=== PATIENT | female | born 1945 | race Caucasian/White ===

== ENCOUNTER → 2019-10-09 08:59 | Outpatient (BNVA) | payer MEDICARE, OTHER, SELFPAY | PROVIDERS: Family Provider Physician Assistant Medical; PCP Physician Assistant Medical; Referring Provider Internal Medicine Rheumatology; Visit Provider Internal Medicine Rheumatology | DX: M05.79 Rheumatoid arthritis with rheumatoid factor of multiple sites without organ or systems involvement (principal); Z79.899 Other long term (current) drug therapy | CPT/HCPCS: 36415; 82565; 84450; 84460; 85007; 85027; 85651; 86140 ==

== ENCOUNTER → 2019-10-17 13:45 | Outpatient (BNVA) | payer MEDICARE, OTHER, SELFPAY | PROVIDERS: Family Provider Physician Assistant Medical; PCP Physician Assistant Medical; Visit Provider Internal Medicine Rheumatology | DX: M05.79 Rheumatoid arthritis with rheumatoid factor of multiple sites without organ or systems involvement (principal); Z79.899 Other long term (current) drug therapy; Z11.59 Encounter for screening for other viral diseases; M05.9 Rheumatoid arthritis with rheumatoid factor, unspecified; M19.042 Primary osteoarthritis, left hand; M19.041 Primary osteoarthritis, right hand; M20.12 Hallux valgus (acquired), left foot; M20.11 Hallux valgus (acquired), right foot | CPT/HCPCS: 73130; 73630; 99214 ==

== ENCOUNTER 2019-10-17 15:33 | Outpatient (CLI) | payer MEDICARE, OTHER, SELFPAY ==
--- NOTE | 2019-10-17 15:40 | XR_ITS ---
WS: [id number] LEFT HAND: 3 VIEW(S) TECHNIQUE: PA, oblique and lateral. HISTORY: arthritis COMPARISON: None available. No acute fracture or dislocation. Severe degenerative joint disease involving the second IP joint. Bony hypertrophy with loss of the cristobal int space and sclerosis. Interphalangeal joint space narrowing. Moderate degenerative joint disease a t the first carpometacarpal joint. Early erosion at the ulnar styloid suspected. XR/XR hand LT min 3V* [id number] IMPRESSION: 1. Osteoarthritis, most significant at the first carpometacarpal joint and sec ond DIP joint. 2. Early erosion involving the ulnar styloid. This is often a site for early i nflammatory arthritis.
--- NOTE | 2019-10-17 15:40 | XR_ITS ---
WS: [id number] RIGHT FOOT: 3 VIEW(S) TECHNIQUE: PA, oblique and lateral. HISTORY: arthritis COMPARISON: None available. No acute fracture or dislocation. Mild hallux valgus. No erosions at the metatarsal heads. No soft tissue abnormality or bone destruction. XR/XR foot RT min 3V* [id number] IMPRESSION: Mild hallux valgus deformity.
--- NOTE | 2019-10-17 15:40 | XR_ITS ---
WS: [id number] LEFT FOOT: 3 VIEW(S) TECHNIQUE: PA, oblique and lateral. HISTORY: arthritis COMPARISON: None available. No acute fracture or dislocation. Mild hallux valgus deformity. Screw fixation involving the distal fifth metatarsal. Resection of the fifth metatarsal. No erosions. No soft tissue abnormality or bone destruction. XR/XR foot LT min 3V* [id number] IMPRESSION: 1. Postoperative screw fixation distal fifth metatarsal. Abnormal contour or t he fifth metatarsal head may be postsurgical. 2. Mild hallux valgus.
--- NOTE | 2019-10-17 15:40 | XR_ITS ---
WS: [id number] RIGHT HAND: 3 VIEW(S) TECHNIQUE: PA, oblique and lateral. HISTORY: arthritis COMPARISON: None available. No acute fracture or dislocation. Interphalangeal joint space narrowing, most significant involving the DIP joints of the third and sec ond fingers. No erosions. XR/XR hand RT min 3V* [id number] IMPRESSION: Osteoarthritis, most significant at the DIP joints of the second and third fing ers.
== END 2019-10-17 15:34 | disposition home or self-care (01) ==
LOC: RADWPI 15:37
PROVIDERS: Family Provider Physician Assistant Medical; PCP Physician Assistant Medical; Visit Provider Internal Medicine Rheumatology
DX: M05.9 Rheumatoid arthritis with rheumatoid factor, unspecified (principal); M19.042 Primary osteoarthritis, left hand; M19.041 Primary osteoarthritis, right hand; M20.12 Hallux valgus (acquired), left foot; M20.11 Hallux valgus (acquired), right foot
CPT/HCPCS: 73130; 73630

== ENCOUNTER → 2020-01-17 14:09 | Outpatient (BNVA) | payer MEDICARE, OTHER, SELFPAY | PROVIDERS: Family Provider Physician Assistant Medical; PCP Physician Assistant Medical; Visit Provider Internal Medicine Rheumatology | DX: M05.79 Rheumatoid arthritis with rheumatoid factor of multiple sites without organ or systems involvement (principal); Z79.899 Other long term (current) drug therapy; G60.9 Hereditary and idiopathic neuropathy, unspecified | CPT/HCPCS: 36415; 80076; 82565; 85025; 85651; 86140; 99214 ==

== ENCOUNTER → 2020-05-27 09:43 | Outpatient (BNVA) | payer MEDICARE, OTHER, SELFPAY | PROVIDERS: Family Provider Physician Assistant Medical; PCP Physician Assistant Medical; Visit Provider Internal Medicine Rheumatology | DX: M05.79 Rheumatoid arthritis with rheumatoid factor of multiple sites without organ or systems involvement (principal); Z79.899 Other long term (current) drug therapy; Z11.1 Encounter for screening for respiratory tuberculosis; G60.9 Hereditary and idiopathic neuropathy, unspecified; M10.9 Gout, unspecified; Z91.81 History of falling | CPT/HCPCS: 36415; 80076; 82565; 85025; 85651; 86140; 86480; 99214 ==

== ENCOUNTER 2020-06-06 14:50 | Outpatient (CLI) | payer MEDICARE, OTHER, SELFPAY ==
--- NOTE | 2020-06-06 15:45 | XR_ITS ---
WS: [id number] SCREENING DEXA SCAN imageloop CLINICAL INFORMATION: osteoporosis screening COMPARISON: None. FINDINGS: The L1-L4 bone mineral density measures 0.974 g/cm2. This corresponds to a T score score of -1.7 and Z score of 0.0. Left femoral neck bone mineral density measures 0.931 g/cm2. This corresponds to a T score of -0.6 an d Z score of 1.1. Right femoral neck bone mineral density measures 0.906 g/cm2. This corresponds to a T score -0.8of an d Z score of 0.9. Mean femoral neck bone mineral density measures 0.919 g/cm2. This corresponds to a T score of -0.7 an d Z score of 1.0. XR/XR DEXA axial skeleton* [id number] IMPRESSION: Osteopenia lumbar spine. Normal bone mineralization in the femoral necks. Patient's FRAX calculated 10 year probability for major osteoporotic fracture i s 22.7 % and osteoporotic hip fracture is 5.0%.
== END 2020-06-06 14:51 | disposition home or self-care (01) ==
LOC: RADWPI 14:55
PROVIDERS: Family Provider Physician Assistant Medical; PCP Physician Assistant Medical; Visit Provider Internal Medicine Rheumatology
DX: Z13.820 Encounter for screening for osteoporosis (principal); M85.88 Other specified disorders of bone density and structure, other site
CPT/HCPCS: 77080

== ENCOUNTER 2020-06-25 09:52 | Outpatient (CLI) | payer MEDICARE, OTHER, SELFPAY ==
[2020-06-25 10:00] VITALS: BP 135/85; PULSE 80; RESP 16; TEMP 36.8; O2SAT 96
[2020-06-25 11:11] VITALS: BMI 26.9
--- NOTE | 2020-06-25 11:12 | PC.NURSE ---
1000 Initial infusion of Simponi Aria. Pt had received medication education prior to today. More education given. Discussed plan of care. A&Ox3. Denies s&s of infection or rash. Ambulating without difficulty or assistance.
[2020-06-25 11:34] VITALS: BP 152/89; PULSE 60; RESP 16; O2SAT 95
== END 2020-06-25 09:53 | disposition home or self-care (01) ==
LOC: RHEOACUTE 09:54
PROVIDERS: Family Provider Physician Assistant Medical; PCP Physician Assistant Medical; Visit Provider Internal Medicine Rheumatology
DX: M05.79 Rheumatoid arthritis with rheumatoid factor of multiple sites without organ or systems involvement (principal)
CPT/HCPCS: 96365; J1602

== ENCOUNTER 2020-07-23 09:46 | Outpatient (CLI) | payer MEDICARE, OTHER, SELFPAY ==
[2020-07-23 10:28] VITALS: BP 145/90; PULSE 81; RESP 16; TEMP 36.7; O2SAT 97
--- NOTE | 2020-07-23 10:30 | PC.NURSE ---
Labs obtained with IV start.
[2020-07-23 11:45] VITALS: BP 152/90; PULSE 81; RESP 16; O2SAT 97
== END 2020-07-23 09:47 | disposition home or self-care (01) ==
LOC: RHEOACUTE 09:47
PROVIDERS: Family Provider Physician Assistant Medical; PCP Physician Assistant Medical; Visit Provider Internal Medicine Rheumatology
DX: M05.79 Rheumatoid arthritis with rheumatoid factor of multiple sites without organ or systems involvement (principal); Z79.899 Other long term (current) drug therapy
CPT/HCPCS: 80076; 82565; 85025; 85651; 86140; 96365; J1602

== ENCOUNTER 2020-07-24 07:55 | Outpatient (CLI) | payer MEDICARE, OTHER, SELFPAY ==
--- NOTE | 2020-07-24 08:10 | ECG_ITS ---
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 Interpretive Statements NAME OF STUDY: LEXISCAN SESTAMIBI STRESS TEST INDICATION: [a fib, ] Procedure: The baseline blood pressure was 190/101 mmHg with a heart rate of 96 bpm. The electrocardiogram showed atrial fibrillation with nonspecific ST-T wave changes. The Lexiscan was infused for a duration of 20 seconds. A total of 0.4 mg of Lexiscan was infused. The stress phase was continued for a total of 5 minutes. Heart rate at end of stress phase was 103 bpm, with a blood pressure 176/88 mmHg. The EKG at the peak infusion revealed A. fib with ST depressions in lateral leads. Sestamibi was injected 20 seconds after Lexiscan infusion. Blood pressure at the end of recovery phase was 165/93 mmHg with a heart rate of 90 bpm. No significant new EKG changes during recovery phase. Conclusion: 1. Lateral lead ST depressions during stress phase. Could represent ischemia. For complete assessment please see nuclear stress imaging report. 2. No Lexiscan induced chest pain or cardiac arrhythmia. 3. Normal blood pressure and heart rate response. 4. Sestamibi/sestamibi perfusion scan pending; see separate report. Electronically Signed On 07-25-2020 19:05:48 SUSTAINABILITY COACH by Darrick Cortes M.D. [id number]
--- NOTE | 2020-07-24 08:11 | NMCV_ITS ---
NM margareth perf SPECT r/s* [id number] Kaitlynn Osborne Age: 74 Gender: F : 1945 Exam Date: 07/24/2020 08:11 Ordering Phys: Rubin Craig PA-C XX Technologist: NIMCO Thompson Exam Location: [facility] Indications: ATRIAL FIBRILLATION STRESS TEST [facility] IMAGE PROTOCOL Rest/Stress 1 Lexiscan Day Radiopharmaceutical Dose (mCi) Administration Site Administered by Rest: Tc-99m 10.7 IV NIMCO Hernandez Sestamibi Stress:Tc-99m 32.3 IV NIMCO Hernandez Sestamibi Rest: 24-Jul-2020 60 Discovery 630 Stress: 24-Jul-2020 30 Discovery 630 0.4mg Lexiscan. Images obtained in supine and prone position. SPECT RESULTS Technical Quality: Excellent Raw Data Analysis: Normal Image Corrections: No attenuation or motion correction applied Summed Stress Score: 0 Summed Rest Score: 2 Summed Difference Score: 0 PERFUSION FINDINGS Normal myocardial perfusion imaging with homogenous radiotracer uptake. No evidence of ischemia is noted FUNCTIONAL RESULTS (calculated via Gated SPECT) Stress Image LV EF (%): 65 Stress EDV (mL):60 TID: 0.9 Stress ESV (mL):21 FUNCTIONAL FINDINGS: There is normal left ventricular systolic function. IMPRESSIONS 1. Normal myocardial perfusion imaging is noted. No evidence of ischemia 2. LV systolic function is normal with EF of 65% Darrick Cortes MD (Electronically Signed) Final Date: 24 July 2020 13:56 S
[2020-07-24 08:13] VITALS: BMI 27.4
[2020-07-24] MEDS: regadenoson 0.4 Mg/5 ml Syringe IVP (09:43)
[2020-07-24 09:58] VITALS: BP 165/93; PULSE 87
== END 2020-07-24 07:56 | disposition home or self-care (01) ==
LOC: RAD 07:59 → CDL 08:13
PROVIDERS: PCP Physician Assistant Medical; Visit Provider Physician Assistant Medical
DX: I48.91 Unspecified atrial fibrillation (principal)
CPT/HCPCS: 78452; 93017; A9500; J2785

== ENCOUNTER → 2020-08-26 10:15 | Outpatient (BNVA) | payer MEDICARE, OTHER, SELFPAY | PROVIDERS: PCP Physician Assistant Medical; Visit Provider Internal Medicine Rheumatology | DX: M05.79 Rheumatoid arthritis with rheumatoid factor of multiple sites without organ or systems involvement (principal); M85.80 Other specified disorders of bone density and structure, unspecified site; Z79.899 Other long term (current) drug therapy; G60.9 Hereditary and idiopathic neuropathy, unspecified; M10.9 Gout, unspecified | CPT/HCPCS: 99214 ==

== ENCOUNTER 2020-09-25 10:35 | Outpatient (CLI) | payer MEDICARE, OTHER, SELFPAY ==
[2020-09-25 11:10] VITALS: BP 179/82; PULSE 91; RESP 18; TEMP 36.8; O2SAT 98
[2020-09-25 11:29] LABS: Basophils # 0.1 10^3/uL (0.0-0.1); Basophils % 0.7 %; Eosinophils # 0.2 10^3/uL (0.0-0.8); Hematocrit 40.9 % (37.0-47.0); Hemoglobin 13.4 g/dL (11.5-15.3); Lymphocytes # 1.7 10^3/uL (0.8-4.8); Lymphocytes % 23.9 %; Mean Corpuscular HGB Conc 32.8 g/dL (30.0-36.0); Mean Corpuscular Volume 91.7 fL (81-99); Mean Platelet Volume 10.7 fL (7.4-10.4); Monocytes # 0.9 10^3/uL (0.2-0.9); Monocytes % 12.1 %; Neutrophils # 4.35 10^3/uL (1.8-7.7); Nucleated Red Blood Cells % 0 %; Platelet Count 216 10^3/cmm (130-400); Red Blood Count 4.46 10^6/uL (4.1-5.3); Red Cell Distribution Width 14.1 % (12.1-15.1); White Blood Count 7.3 10^3/uL (4.0-10.0)
[2020-09-25 11:55] VITALS: BP 172/92; PULSE 93; RESP 18; TEMP 36.9; O2SAT 98
[2020-09-25 12:09] LABS: Alanine Aminotransferase 27 U/L (0-33); Albumin Level 4.2 g/dL (3.5-5.2); Alkaline Phosphatase 72 IU/L (35-105); C Reactive Protein 5.9 mg/L (0.0-4.9); Globulin 3.7 g/dL (1.3-4.6); Total Bilirubin 0.4 mg/dL (0.15-1.2); Total Protein 7.9 g/dL (6.6-8.7)
[2020-09-25 12:12] LABS: Aspartate Amino Transferase 44 U/L (0-32)
[2020-09-25 12:22] LABS: Erythrocyte Sedimentation Rate 28 mm/hr (0-15)
== END 2020-09-25 10:36 | disposition home or self-care (01) ==
LOC: ONCMED 10:37
PROVIDERS: Internal Medicine Rheumatology; PCP Physician Assistant Medical; Visit Provider Internal Medicine Medical Oncology
DX: M05.79 Rheumatoid arthritis with rheumatoid factor of multiple sites without organ or systems involvement (principal); Z79.899 Other long term (current) drug therapy
CPT/HCPCS: 80076; 82565; 85025; 85651; 86140; 96365; J1602

== ENCOUNTER 2020-11-20 12:58 | Outpatient (CLI) | payer MEDICARE, OTHER, SELFPAY ==
[2020-11-20 13:27] VITALS: BP 149/88; PULSE 76; RESP 16; TEMP 36.7; O2SAT 96
[2020-11-20 14:00] VITALS: BP 138/76; PULSE 76; RESP 16; TEMP 37.2; O2SAT 94
== END 2020-11-20 12:59 | disposition home or self-care (01) ==
PROVIDERS: PCP Physician Assistant Medical; Visit Provider Internal Medicine Rheumatology
DX: M05.79 Rheumatoid arthritis with rheumatoid factor of multiple sites without organ or systems involvement (principal)
CPT/HCPCS: 96365; J1602

== ENCOUNTER → 2020-12-23 09:31 | Outpatient (BNVA) | payer MEDICARE, OTHER, SELFPAY | PROVIDERS: PCP Physician Assistant Medical; Visit Provider Internal Medicine Rheumatology | DX: M05.79 Rheumatoid arthritis with rheumatoid factor of multiple sites without organ or systems involvement (principal); Z79.899 Other long term (current) drug therapy; G60.9 Hereditary and idiopathic neuropathy, unspecified; M10.9 Gout, unspecified; M85.80 Other specified disorders of bone density and structure, unspecified site | CPT/HCPCS: 99214 ==

== ENCOUNTER 2021-01-01 06:59 | Outpatient (CLI) | payer MEDICARE, OTHER, SELFPAY ==
--- NOTE | 2021-01-01 | MR_ITS ---
WS: [id number] MRI CERVICAL SPINE NONCONTRAST HISTORY: CERVICAL RADICULOPATHY COMPARISON: None available. Technique: Multiplanar, multisequence noncontrast imaging of the cervical spine. Mild straightening of the normal lordosis. Disc bulging and osteophytosis at multiple levels with mod erate disc space narrowing. Signal within the cervical cord is normal. Visualized posterior fossa is unremarkable. Craniocervical junction, C1 and C2 relationship, odontoid process and soft tissues are normal. C2-C3: Shallow central disc protrusion. No stenosis. C3-C4: Mild annular disc bulging with a focal central disc protrusion causing mild effacement of CSF but no cord displacement. Very mild central and foraminal narrowing. C4-C5: Diffuse annular disc bulging and osteophytic ridging. There is a more subtle focal central dis c osteophyte complex abutting the ventral cord. Disc osteophyte complexes are moderate in the foramen . Mild central and moderate bilateral foraminal stenosis. C5-C6: Mild diffuse annular disc bulging and osteophytic ridging. Effacement of ventral CSF. Mild syd tral with moderate to severe bilateral foraminal stenosis. C6-C7: Diffuse annular disc bulging is slightly asymmetric to the LEFT. Disc osteophyte complexes are causing moderate bilateral foraminal stenosis. C7-T1: Mild annular disc bulging with moderate central disc protrusion and facet arthritis. Disc oste ophyte complex contributing to mild central and bilateral foraminal stenosis. Paraspinal soft tissue are normal. MR/MR cervical spin wo con* [id number] IMPRESSION: 1. Multilevel mild to moderate spondylosis and degenerative changes throughout the thoracic spine. Vonm-pd-wogjeynn bilateral facet joint arthritis. 2. Central disc protrusion at C3-4 causing mild effacement of CSF resulting in mild central and foraminal narrowing. 3. Mild central and moderate bilateral foraminal stenosis with associated mode rate focal disc protrusion. 4. Mild central with moderate to severe bilateral foraminal stenosis. 5. Moderate bilateral foraminal stenosis at C6-7. 6. Moderate central disc protrusion at C7-T1 resulting in mild central and lino ateral foraminal stenosis.
== END 2021-01-01 07:00 | disposition home or self-care (01) ==
LOC: RADSHAW 07:03
PROVIDERS: PCP Physician Assistant Medical; Visit Provider Nurse Practitioner Family
DX: M54.12 Radiculopathy, cervical region (principal); M50.23 Other cervical disc displacement, cervicothoracic region; M48.02 Spinal stenosis, cervical region; M50.21 Other cervical disc displacement, high cervical region
CPT/HCPCS: 72141

== ENCOUNTER → 2021-01-14 11:31 | Outpatient (BNVA) | payer MEDICARE, OTHER, SELFPAY | PROVIDERS: PCP Physician Assistant Medical; Referring Provider Family Medicine; Visit Provider Orthopaedic Surgery | DX: M48.02 Spinal stenosis, cervical region (principal) | CPT/HCPCS: 72050 ==

== ENCOUNTER → 2021-01-15 09:24 | Outpatient (BNVA) | payer MEDICARE, OTHER, SELFPAY | PROVIDERS: PCP Physician Assistant Medical; Referring Provider Orthopaedic Surgery; Visit Provider Anesthesiology Pain Medicine | DX: M54.12 Radiculopathy, cervical region (principal); M47.812 Spondylosis without myelopathy or radiculopathy, cervical region; R20.2 Paresthesia of skin | CPT/HCPCS: 99204 ==

== ENCOUNTER 2021-01-15 11:42 | Outpatient (CLI) | payer MEDICARE, OTHER, SELFPAY ==
[2021-01-15 13:22] LABS: Basophils % 0.6 %; Eosinophils # 0.3 10^3/uL (0.0-0.8); Eosinophils % 4.4 %; Hematocrit 38.1 % (37.0-47.0); Hemoglobin 12.5 g/dL (11.5-15.3); Lymphocytes # 2.1 10^3/uL (0.8-4.8); Lymphocytes % 32.6 %; Mean Corpuscular HGB Conc 32.8 g/dL (30.0-36.0); Mean Corpuscular Hemoglobin 30.3 pg (28.0-34.0); Mean Corpuscular Volume 92.5 fL (81-99); Mean Platelet Volume 10.6 fL (7.4-10.4); Monocytes # 0.9 10^3/uL (0.2-0.9); Monocytes % 14.1 %; Neutrophils # 3.15 10^3/uL (1.8-7.7); Neutrophils % 48.1 %; Nucleated Red Blood Cells % 0 %; Platelet Count 204 10^3/cmm (130-400); Red Blood Count 4.12 10^6/uL (4.1-5.3); Red Cell Distribution Width 15.6 % (12.1-15.1); White Blood Count 6.5 10^3/uL (4.0-10.0)
[2021-01-15 13:32] LABS: Alanine Aminotransferase 27 U/L (0-33); Albumin Level 3.8 g/dL (3.5-5.2); Alkaline Phosphatase 51 IU/L (35-105); Anion Gap 11.2 (5-19); Aspartate Amino Transferase 27 U/L (0-32); Blood Urea Nitrogen 11 mg/dL (8-23); C Reactive Protein 4.5 mg/L (0.0-4.9); Calcium 8.4 mg/dL (8.5-10.5); Carbon Dioxide 29 mmol/L (22-29); Chloride 103 mmol/L (98-107); Globulin 3.3 g/dL (1.3-4.6); Glucose 78 mg/dL (65-115); Osmolality Calculated 288 mOsm/kg (285-295); Potassium 3.2 mmol/L (3.5-5.1); Sodium 140 mmol/L (136-145); Total Bilirubin 0.5 mg/dL (0.15-1.2); Total Protein 7.1 g/dL (6.6-8.7)
[2021-01-15 15:08] LABS: Erythrocyte Sedimentation Rate 41 mm/hr (0-15)
--- NOTE | 2021-01-15 16:44 | PC.NURSE ---
Patient came into the suite for her scheduled lab work and IV infusion of Simposi. IV started in the right ac space with #24 intracath with good blood return. IV infused over 35minutes at rate of 200ml/hr with no issues or concerns. IV removed with guaze and coban applied to arm. No bleeding noted or complaints.B/p144/83 pulse 86 temp 97.8 resp 19 o2 sat 94.
== END 2021-01-15 11:43 | disposition home or self-care (01) ==
PROVIDERS: PCP Physician Assistant Medical; Visit Provider Internal Medicine Rheumatology
DX: M05.79 Rheumatoid arthritis with rheumatoid factor of multiple sites without organ or systems involvement (principal)
CPT/HCPCS: 80053; 82248; 85025; 85651; 86140; 96365; J1602

== ENCOUNTER → 2021-01-31 12:56 | Outpatient (BNVA) | payer MEDICARE, OTHER, SELFPAY | PROVIDERS: PCP Physician Assistant Medical; Visit Provider Anesthesiology Pain Medicine | DX: M54.12 Radiculopathy, cervical region (principal) | CPT/HCPCS: 62321; J1100 ==

== ENCOUNTER → 2021-02-17 09:51 | Outpatient (BNVA) | payer MEDICARE, OTHER, SELFPAY | PROVIDERS: PCP Physician Assistant Medical; Visit Provider Anesthesiology Pain Medicine | DX: M54.12 Radiculopathy, cervical region (principal); M47.812 Spondylosis without myelopathy or radiculopathy, cervical region | CPT/HCPCS: 99214 ==

== ENCOUNTER 2021-03-10 10:48 | Outpatient (CLI) | payer MEDICARE, OTHER, SELFPAY ==
[2021-03-10 11:10] VITALS: BP 157/88; PULSE 68; RESP 16; TEMP 36.9; O2SAT 97
[2021-03-10 12:06] LABS: Basophils # 0.1 10^3/uL (0.0-0.1); Basophils % 0.8 %; Eosinophils # 0.2 10^3/uL (0.0-0.8); Eosinophils % 3.1 %; Hemoglobin 12.9 g/dL (11.5-15.3); Lymphocytes # 1.7 10^3/uL (0.8-4.8); Lymphocytes % 22.4 %; Mean Corpuscular HGB Conc 33.1 g/dL (30.0-36.0); Mean Corpuscular Hemoglobin 30.9 pg (28.0-34.0); Mean Corpuscular Volume 93.3 fL (81-99); Mean Platelet Volume 11.3 fL (7.4-10.4); Monocytes # 0.9 10^3/uL (0.2-0.9); Monocytes % 12.4 %; Neutrophils # 4.52 10^3/uL (1.8-7.7); Neutrophils % 61.2 %; Nucleated Red Blood Cells % 0 %; Platelet Count 192 10^3/cmm (130-400); Red Blood Count 4.18 10^6/uL (4.1-5.3); Red Cell Distribution Width 14.5 % (12.1-15.1); White Blood Count 7.4 10^3/uL (4.0-10.0)
[2021-03-10 12:27] VITALS: BP 145/85; PULSE 79; RESP 16; TEMP 36.3; O2SAT 96
[2021-03-10 12:57] LABS: Alanine Aminotransferase 19 U/L (0-33); Albumin Level 3.9 g/dL (3.5-5.2); Alkaline Phosphatase 54 IU/L (35-105); Aspartate Amino Transferase 24 U/L (0-32); C Reactive Protein 11.1 mg/L (0.0-4.9); Globulin 3.2 g/dL (1.3-4.6); Total Bilirubin 0.4 mg/dL (0.15-1.2); Total Protein 7.1 g/dL (6.6-8.7)
== END 2021-03-10 10:49 | disposition home or self-care (01) ==
PROVIDERS: PCP Physician Assistant Medical; Referring Provider Internal Medicine Rheumatology; Visit Provider Internal Medicine Rheumatology
DX: M05.79 Rheumatoid arthritis with rheumatoid factor of multiple sites without organ or systems involvement (principal)
CPT/HCPCS: 36415; 80076; 82565; 85025; 86140; 96365; J1602

== ENCOUNTER → 2021-04-23 10:44 | Outpatient (BNVA) | payer MEDICARE, OTHER, SELFPAY | PROVIDERS: PCP Physician Assistant Medical; Visit Provider Internal Medicine Rheumatology | DX: M05.79 Rheumatoid arthritis with rheumatoid factor of multiple sites without organ or systems involvement (principal); Z79.899 Other long term (current) drug therapy; G60.9 Hereditary and idiopathic neuropathy, unspecified; M10.9 Gout, unspecified; M85.80 Other specified disorders of bone density and structure, unspecified site; Z71.89 Other specified counseling | CPT/HCPCS: 99214 ==

== ENCOUNTER 2021-05-05 08:48 | Outpatient (CLI) | payer MEDICARE, OTHER, SELFPAY ==
[2021-05-05 09:01] VITALS: BP 153/86; PULSE 64; RESP 16; TEMP 36.5; O2SAT 98
[2021-05-05 09:43] LABS: Basophils % 0.6 %; Eosinophils # 0.3 10^3/uL (0.0-0.8); Eosinophils % 3.9 %; Hematocrit 39.2 % (37.0-47.0); Hemoglobin 12.9 g/dL (11.5-15.3); Lymphocytes # 1.9 10^3/uL (0.8-4.8); Mean Corpuscular HGB Conc 32.9 g/dL (30.0-36.0); Mean Corpuscular Hemoglobin 30.1 pg (28.0-34.0); Mean Corpuscular Volume 91.6 fl (81-99); Mean Platelet Volume 10.9 fL (7.4-10.4); Monocytes # 0.9 10^3/uL (0.2-0.9); Monocytes % 14.3 %; Neutrophils # 3.19 10^3/uL (1.8-7.7); Neutrophils % 50.3 %; Nucleated Red Blood Cells % 0 %; Platelet Count 191 10^3/cmm (130-400); Red Blood Count 4.28 10^6/uL (4.1-5.3); Red Cell Distribution Width 13.9 % (12.1-15.1); White Blood Count 6.4 10^3/uL (4.0-10.0)
[2021-05-05 10:20] VITALS: BP 145/81; PULSE 70; RESP 16; TEMP 36.4; O2SAT 98
[2021-05-05 11:11] LABS: Erythrocyte Sedimentation Rate 34 mm/hr (0-15)
[2021-05-05 11:23] LABS: Alanine Aminotransferase 22 U/L (0-33); Aspartate Amino Transferase 36 U/L (0-32); C Reactive Protein 3.9 mg/L (0.0-4.9)
== END 2021-05-05 08:49 | disposition home or self-care (01) ==
LOC: ONCMED 08:52
PROVIDERS: PCP Physician Assistant Medical; Visit Provider Internal Medicine Rheumatology
DX: M05.79 Rheumatoid arthritis with rheumatoid factor of multiple sites without organ or systems involvement (principal)
CPT/HCPCS: 82565; 84450; 84460; 85025; 85651; 86140; 96365; J1602

== ENCOUNTER → 2021-05-19 10:27 | Outpatient (BNVA) | payer MEDICARE, OTHER, SELFPAY | PROVIDERS: PCP Physician Assistant Medical; Visit Provider Anesthesiology Pain Medicine | DX: G89.29 Other chronic pain (principal); M54.12 Radiculopathy, cervical region; M47.812 Spondylosis without myelopathy or radiculopathy, cervical region; Z79.891 Long term (current) use of opiate analgesic | CPT/HCPCS: 99213 ==

== ENCOUNTER 2021-07-03 08:51 | Outpatient (CLI) | payer MEDICARE, OTHER, SELFPAY ==
[2021-07-03 09:01] VITALS: BP 142/83; PULSE 95; RESP 18; TEMP 36.2; O2SAT 96
[2021-07-03] MEDS: sodium chloride 0.9% 250 ML 50 ML IV (09:30)
[2021-07-03 09:31] LABS: Basophils % 0.5 %; Eosinophils # 0.2 10^3/uL (0.0-0.8); Eosinophils % 2.3 %; Hematocrit 38.6 % (37.0-47.0); Hemoglobin 12.8 g/dL (11.5-15.3); Lymphocytes # 1.6 10^3/uL (0.8-4.8); Lymphocytes % 21.6 %; Mean Corpuscular HGB Conc 33.2 g/dL (30.0-36.0); Mean Corpuscular Hemoglobin 30.4 pg (28.0-34.0); Mean Corpuscular Volume 91.7 fl (81-99); Mean Platelet Volume 11.6 fL (7.4-10.4); Monocytes # 0.9 10^3/uL (0.2-0.9); Monocytes % 12.1 %; Neutrophils # 4.65 10^3/uL (1.8-7.7); Neutrophils % 63.2 %; Nucleated Red Blood Cells % 0 %; Platelet Count 210 10^3/cmm (130-400); Red Blood Count 4.21 10^6/uL (4.1-5.3); Red Cell Distribution Width 15.5 % (12.1-15.1); White Blood Count 7.4 10^3/uL (4.0-10.0)
[2021-07-03 09:41] LABS: Alanine Aminotransferase 19 U/L (0-33); Albumin Level 3.7 g/dL (3.5-5.2); Alkaline Phosphatase 58 IU/L (35-105); Aspartate Amino Transferase 26 U/L (0-32); Globulin 3.1 g/dL (1.3-4.6); Total Bilirubin 0.4 mg/dL (0.15-1.2); Total Protein 6.8 g/dL (6.6-8.7)
[2021-07-03 10:15] VITALS: BP 126/83; PULSE 86; RESP 18; TEMP 36.7; O2SAT 95
== END 2021-07-03 08:52 | disposition home or self-care (01) ==
PROVIDERS: PCP Physician Assistant Medical; Referring Provider Internal Medicine Rheumatology; Visit Provider Internal Medicine Rheumatology
DX: M05.79 Rheumatoid arthritis with rheumatoid factor of multiple sites without organ or systems involvement (principal); Z79.899 Other long term (current) drug therapy
CPT/HCPCS: 80076; 82565; 85025; 85651; 96365; J1602; J7050

== ENCOUNTER → 2021-08-12 08:40 | Outpatient (BNVA) | payer MEDICARE, OTHER, SELFPAY | PROVIDERS: PCP Registered Nurse; Visit Provider Anesthesiology Pain Medicine | DX: M05.79 Rheumatoid arthritis with rheumatoid factor of multiple sites without organ or systems involvement (principal); Z79.899 Other long term (current) drug therapy; M10.9 Gout, unspecified; M85.80 Other specified disorders of bone density and structure, unspecified site; M15.4 Erosive (osteo)arthritis; G62.9 Polyneuropathy, unspecified; Z71.89 Other specified counseling; M54.12 Radiculopathy, cervical region; M47.812 Spondylosis without myelopathy or radiculopathy, cervical region; Z79.891 Long term (current) use of opiate analgesic | CPT/HCPCS: 99213; 99214 ==

== ENCOUNTER 2021-09-02 11:08 | Outpatient (CLI) | payer MEDICARE, OTHER, SELFPAY ==
[2021-09-02 11:26] VITALS: BP 134/83; PULSE 69; RESP 18; TEMP 36.4; O2SAT 98
[2021-09-02 11:46] LABS: Basophils # 0.1 10^3/uL (0.0-0.1); Basophils % 0.8 %; Eosinophils # 0.2 10^3/uL (0.0-0.8); Eosinophils % 2.1 %; Hematocrit 41.1 % (37.0-47.0); Hemoglobin 13.3 g/dL (11.5-15.3); Lymphocytes % 21.8 %; Mean Corpuscular HGB Conc 32.4 g/dL (30.0-36.0); Mean Corpuscular Hemoglobin 29.3 pg (28.0-34.0); Mean Corpuscular Volume 90.5 fl (81-99); Mean Platelet Volume 11.3 fL (7.4-10.4); Monocytes # 1.2 10^3/uL (0.2-0.9); Monocytes % 13.1 %; Neutrophils # 5.55 10^3/uL (1.8-7.7); Neutrophils % 61.9 %; Nucleated Red Blood Cells % 0 %; Platelet Count 220 10^3/cmm (130-400); Red Blood Count 4.54 10^6/uL (4.1-5.3); Red Cell Distribution Width 15.8 % (12.1-15.1)
[2021-09-02] MEDS: sodium chloride 0.9% 250 ML 50 ML IV (12:00)
[2021-09-02 12:11] LABS: Alanine Aminotransferase 21 U/L (0-33); Albumin Level 4.2 g/dL (3.5-5.2); Alkaline Phosphatase 59 IU/L (35-105); Aspartate Amino Transferase 28 U/L (0-32); Globulin 3.2 g/dL (1.3-4.6); Total Bilirubin 0.4 mg/dL (0.15-1.2); Total Protein 7.4 g/dL (6.6-8.7)
[2021-09-02 12:17] LABS: Erythrocyte Sedimentation Rate 32 mm/hr (0-15)
[2021-09-02 12:56] VITALS: BP 169/89; PULSE 65; RESP 18; TEMP 36.4; O2SAT 97
== END 2021-09-02 11:09 | disposition home or self-care (01) ==
LOC: ONCMED 11:14
PROVIDERS: PCP Registered Nurse; Visit Provider Internal Medicine Rheumatology
DX: M05.79 Rheumatoid arthritis with rheumatoid factor of multiple sites without organ or systems involvement (principal); Z79.899 Other long term (current) drug therapy
CPT/HCPCS: 80076; 82565; 85025; 85651; 96365; J1602; J7050

== ENCOUNTER 2021-10-28 10:35 | Outpatient (CLI) | payer MEDICARE, OTHER, SELFPAY ==
[2021-10-28 10:51] VITALS: BP 147/85; PULSE 77; RESP 18; TEMP 36.5; O2SAT 96
[2021-10-28 11:12] LABS: Basophils # 0.1 10^3/uL (0.0-0.1); Eosinophils # 0.3 10^3/uL (0.0-0.8); Eosinophils % 4.1 %; Hematocrit 37.5 % (37.0-47.0); Hemoglobin 12.2 g/dL (11.5-15.3); Lymphocytes # 1.5 10^3/uL (0.8-4.8); Lymphocytes % 24.7 %; Mean Corpuscular HGB Conc 32.5 g/dL (30.0-36.0); Mean Corpuscular Hemoglobin 29.1 pg (28.0-34.0); Mean Corpuscular Volume 89.5 fl (81-99); Mean Platelet Volume 11.8 fL (7.4-10.4); Monocytes # 0.9 10^3/uL (0.2-0.9); Monocytes % 14.8 %; Neutrophils # 3.41 10^3/uL (1.8-7.7); Neutrophils % 55.2 %; Nucleated Red Blood Cells % 0 %; Platelet Count 189 10^3/cmm (130-400); Red Blood Count 4.19 10^6/uL (4.1-5.3); Red Cell Distribution Width 16.4 % (12.1-15.1); White Blood Count 6.2 10^3/uL (4.0-10.0)
[2021-10-28] MEDS: sodium chloride 0.9% 250 ML 50 ML IV (11:14)
[2021-10-28 11:16] LABS: Erythrocyte Sedimentation Rate 23 mm/hr (0-15)
[2021-10-28 11:40] LABS: Alanine Aminotransferase 17 U/L (0-33); Albumin Level 4.1 g/dL (3.5-5.2); Alkaline Phosphatase 61 IU/L (35-105); Aspartate Amino Transferase 32 U/L (0-32); Globulin 3.3 g/dL (1.3-4.6); Total Bilirubin 0.4 mg/dL (0.15-1.2); Total Protein 7.4 g/dL (6.6-8.7)
[2021-10-28 12:04] VITALS: BP 149/84; PULSE 76; RESP 18; TEMP 36.1; O2SAT 96
== END 2021-10-28 10:36 | disposition home or self-care (01) ==
PROVIDERS: PCP Registered Nurse; Referring Provider Internal Medicine Rheumatology; Visit Provider Internal Medicine Medical Oncology
DX: M05.79 Rheumatoid arthritis with rheumatoid factor of multiple sites without organ or systems involvement (principal)
CPT/HCPCS: 80076; 82565; 85025; 85651; 96365; J1602; J7050

== ENCOUNTER 2021-11-13 16:48 | Inpatient (IN) | payer MEDICARE, OTHER, SELFPAY ==
[2021-11-13] VITALS (14 sets, daily range): BP systolic 161–202; BP diastolic 84–114; PULSE 105–142; RESP 13–20; TEMP 36.9–37.4; O2SAT 97–100; BMI 24.7
--- NOTE | 2021-11-13 16:54 | ED_ITS ---
HPI - SOB/Dyspnea General: Chief Complaint: Shortness of Breath/Dyspnea Stated Complaint: AFIB, SOB Time Seen by Provider: 11/13/21 16:53 Limitations: altered mental status History of Present Illness: HPI Narrative: Ms. Osborne is a 76-year-old lady with, per chart review, history of atrial fibrillation on anticoagulation who presents to the emergency department due to shortness of breath. The patient herself is confused and does not provide significant meaningful history. She cannot endorse a specific course, timeframe, intensity of symptoms, provoking, exacerbating, or relieving factors. History is therefore limited. Supplement information provided by family upon their arrival was that patient lives alone. They last spoke with her on Wednesday. Unclear duration of symptoms. Family believes that patient is still on Eliquis. Review of Systems General: Reports: ROS unobtainable due to mental status PFSH ED PFSH: Medical History (Updated 11/15/21 @ 13:19 by Lars Haji MD) Atrial fibrillation Encounter for screening for other viral diseases Gout Hemorrhoids High risk medication use History of trigger finger right hand /right finger Immunization counseling Osteoarthritis Osteopenia after menopause Peripheral neuropathy Rheumatoid arthritis with rheumatoid factor Seropositive rheumatoid arthritis of multiple sites Surgical History (Updated 11/15/21 @ 13:19 by Lars Haji MD) H/O foot surgery H/O heart bypass surgery Hx of carpal tunnel repair Right side Family History Other Hypertension Stroke Social History Smoking and tobacco status: never smoked Alcohol intake: never History of recent travel: No Physical Exam Const: COMMON NORMALS: alert; negative for patient oriented x3 GENERAL APPEARANCE: ill appearing ORIENTATION/CONSCIOUSNESS: Yes oriented to person; not oriented to place and not oriented to time HENMT: COMMON NORMALS: normocephalic and atraumatic HEAD & SCALP: normocephalic and atraumatic THROAT: posterior oropharynx normal Eye: COMMON NORMALS: conjunctivae normal CONJUNCTIVA: Yes conjunctivae normal SCLERA: sclerae normal Neck/C-Spine: COMMON NORMALS: supple GENERAL: Yes trachea midline Resp: EFFORT & INSPECTION: Yes tachypneic and Yes uses accessory muscles Cardio: RATE: tachycardic RHYTHM: abnormal rhythm irregularly irregular GI: COMMON NORMALS: Soft to palpation PALPATION: Yes Soft to palpation and No Tenderness to palpation present (GI) Extremity: GENERAL: Yes normal exam except as noted and No edema Neuro: COMMON NORMALS: CN's II-XII intact bilaterally, moves all extremities, no focal motor deficits and no sensory deficits noted; negative for patient oriented x3 SENSORIUM/ORIENTATION: Yes alert, Yes orien darlene to person, No oriented to place, No oriented to time and Yes Orientation impaired Psych: COMMON NORMALS: mental status grossly normal and Normal thought process present THOUGHT PROCESS: Normal thought process present Course ED course: - Patient was seen and evaluated by me at bedside - Patient placed on cardiac monitors, IV access obtained - Initial evaluation notable for ill appearance, exam as above. Orientation impaired and patient provides limited history without focal neurologic deficits. - Labs and xrays personally interpreted by me -Fluids and antibiotics given. - Labs notable for leukocytosis. Normal hemoglobin. Metabolic panel with hypokalemia, replenishment ordered. Anion gap elevated. Negative delta tropo edwin. BNP elevated. Lactic acid obtained after some fluid resuscitation however appears normal. Urinalysis concerning for urinary tract infection. - Imaging notable for negative head CT. Chest x-ray without lobar consolidation or pneumothorax. Given severity of illness without acute cause identified CT imaging is warranted. CT is notable for pyelonephritis. - Upon serial reexamination after treatment the patient was mildly improved. She did not have a significant improvement with fluids in heart rate and therefore esmolol drip ordered. - Based on patient history, evaluation, and testing as interpreted the most likely cause of the patient's condition is pyelonephritis with atrial fibril lation and rapid ventricular response. - The results of ED evaluation were discussed with the patient including plan for admission due to requirement for level of care not available if discharged to prevent significant worsening/deterioration. -Hospitalist service contacted and agreed to admit the patient. - Patient was admitted without further deterioration or significant events. Note: Click bubbles or prepopulated donald in note writing are used for assistance with data collection and billing and are inherently more limited than narrative and other text portions of this note. Please use narrative for additional clinical history and defer to narrative/free test for any case of contradictory information. If information appears in only free text or click bubble it should be considered present or absent as reported. Please contact note commercial insurance underwriter for clarifications of clinical information or contradictory information. MDM is a brief summary, contradictory or erroneous seeming information should be clarified and full note should be reviewed. Vital Signs: Vital signs: Vital Signs Temperature 98.4 F 11/18/21 12:49 Pulse Rate 74 11/18/21 12:49 Respiratory Rate 12 11/18/21 12:49 Blood Pressure 118/61 11/18/21 12:49 Pulse Oximetry 93 11/18/21 12:49 MDM - SOB/Dyspnea Medical Decision Making 76-year-old lady presenting with shortness of breath. Patient initially confused. Atrial fibrillation with rapid ventricular spots as well as urosepsis secondary to pyelonephritis. Admitted for further management. Medical Records I reviewed the patient's medical records. Lab Data I reviewed the patient's lab results. : 11/18/21 04:25 11/18/21 04:25 Labs/Radiology: Radiology Impressions Chest X-Ray 11/13/21 16:59 IMPRESSION: No acute findings. Head CT 11/13/21 17:08 IMPRESSION: 1. No acute intracranial abnormality. 2. Right maxillary sinusitis. Chest/Abdomen/Pelvis CT 11/13/21 17:45 IMPRESSION: 1. No evidence for pulmonary embolus or other acute finding. 2. 4 mm right pulmonary nodule. For patients at low risk (minimal or absent history of smoking and of other known risk factors), no routine follow-up is indicated. For patients at high risk (history of smoking or of other known IMPRESSION: 1. Findings suspicious for right pyelonephritis. Clinical correlation recommended. Laboratory Results WBC 16.3 10^3/uL (4.0-10.0) H 11/13/21 17:20 RBC 4.04 10^6/uL (4.1-5.3) L 11/13/21 17:20 Hgb 11.8 g/dL (11.5-15.3) 11/13/21 17:20 Hct 35.3 % (37.0-47.0) L 11/13/21 17:20 MCV 87.4 fl (81-99) 11/13/21 17:20 MCH 29.2 pg (28.0-34.0) 11/13/21 17:20 MCHC 33.4 g/dL (30.0-36.0) 11/13/21 17:20 RDW 16.6 % (12.1-15.1) H 11/13/21 17:20 Plt Count 140 10^3/cmm (130-400) 11/13/21 17:20 MPV 12.6 fL (7.4-10.4) H 11/13/21 17:20 Neut % (Auto) 81.8 % 11/13/21 17:20 Lymph % (Auto) 4.9 % 11/13/21 17:20 [place] % (Auto) 11.1 % 11/13/21 17:20 Eos % (Auto) 0.0 % 11/13/21 17:20 Baso % (Auto) 0.2 % 11/13/21 17:20 Neut # (Auto) 13.28 10^3/uL (1.8-7.7) H 11/13/21 17:20 Lymph # (Auto) 0.8 10^3/uL (0.8-4.8) 11/13/21 17:20 [place] # (Auto) 1.8 10^3/uL (0.2-0.9) H 11/13/21 17:20 Eos # (Auto) 0.0 10^3/uL (0.0-0.8) 11/13/21 17:20 Baso # (Auto) 0.0 10^3/uL (0.0-0.1) 11/13/21 17:20 Nucleated RBC % (auto) 0 % 11/13/21 17:20 Nucleated RBCs # 0.0 /100WBC 11/13/21 17:20 Specimen Type Arterial 11/13/21 17:00 Sample Site Radial, left 11/13/21 17:00 ABG pH 7.67 (7.35-7.45) H* 11/13/21 17:00 ABG pCO2 22.8 mmHg (35-45) L 11/13/21 17:00 ABG pO2 404.0 mmHg (80.0-100.0) H 11/13/21 17:00 ABG HCO3 26.3 mmol/L (22-26) H 11/13/21 17:00 ABG Base Excess 6.9 mmol/L (-2.0-2.0) H 11/13/21 17:00 Alex Test Pos 11/13/21 17:00 Hematocrit 37.7 % (37-47) 11/13/21 17:00 O2 Delivery Device Nrb 11/13/21 17:00 O2 Liters/Min 15.0 % 11/13/21 17:00 Financial Institution Manager ID Cak 11/13/21 17:00 Sodium 142 mmol/L (136-145) 11/13/21 17:20 Potassium 2.4 mmol/L (3.5-5.1) L* 11/13/21 17:20 Chloride 97 mmol/L (98-107) L 11/13/21 17:20 Carbon Dioxide 23 mmol/L (22-29) 11/13/21 17:20 Anion Gap 24.4 (5-19) H 11/13/21 17:20 BUN 25 mg/dL (8-23) H 11/13/21 17:20 Creatinine 1.0 mg/dL (0.5-0.9) H 11/13/21 17:20 GFR Calculation Not Reportable 11/13/21 17:20 Glucose 154 mg/dL (65-115) H 11/13/21 17:20 POC Glucose 161 mg/dL (70-110) H 11/13/21 17:18 Calculated Osmolality 301 mOsm/kg (285-295) H 11/13/21 17:20 Lactic Acid 2.1 mmol/L (0.5-2.2) 11/13/21 19:57 Calcium 9.4 mg/dL (8.5-10.5) 11/13/21 17:20 Magnesium 2.9 mg/dL (1.7-2.3) H 11/13/21 19:57 Total Bilirubin 1.7 mg/dL (0.15-1.2) H 11/13/21 17:20 AST 39 U/L (0-32) H 11/13/21 17:20 ALT 18 U/L (0-33) 11/13/21 17:20 Alkaline Phosphatase 59 IU/L (35-105) 11/13/21 17:20 Troponin T Baseline 59 ng/L (0-10) H 11/13/21 17:20 Troponin T 120 Minute 60.11 ng/L (0-10) H 11/13/21 19:57 Delta Troponin T 1.11 ABS# (0-10) 11/13/21 19:57 C-Reactive Protein 312.2 mg/L (0.0-4.9) H 11/13/21 17:20 NT-Pro-B Natriuret Pep 2078 pg/mL (0-450) H 11/13/21 17:20 Total Protein 8.1 g/dL (6.6-8.7) 11/13/21 17:20 Albumin 3.8 g/dL (3.5-5.2) 11/13/21 17:20 Globulin 4.3 g/dL (1.3-4.6) 11/13/21 17:20 Lipase 12 U/L (13-60) L 11/13/21 17:20 Procalcitonin 15.58 ng/mL (0-0.5) H 11/13/21 17:20 TSH 3.38 uIU/mL (0.27-4.20) 11/13/21 19:57 Urine Color Yellow (Yellow) 11/13/21 12:42 Urine Appearance Cloudy (CLEAR) 11/13/21 12:42 Urine pH 5 (5-7) 11/13/21 12:42 Ur Specific Fowler 1.020 (1.005-1.030) 11/13/21 12:42 Urine Protein 3+ (Negative) H 11/13/21 12:42 Urine Glucose (UA) Norm (Normal) 11/13/21 12:42 Urine Ketones 2+ (Negative) H 11/13/21 12:42 Urine Blood 3+ (Negative) H 11/13/21 12:42 Urine Nitrate Negative (Negative) 11/13/21 12:42 Urine Bilirubin Neg (Negative) 11/13/21 12:42 Urine Urobilinogen Norm mg/dL (Negative) 11/13/21 12:42 Ur Leukocyte Esterase 2+ (Negative) H 11/13/21 12:42 Urine RBC 10-15 /hpf (0-2) H 11/13/21 12:42 Urine WBC >100 /hpf (0-5) H 11/13/21 12:42 Ur Squamous Epith Cells 0-4 /hpf (0-5) H 11/13/21 12:42 Amorphous Sediment Not Reportable 11/13/21 12:42 Urine Bacteria 1+ /hpf (NONE) H 11/13/21 12:42 EKG Data EKG 1: I personally reviewed and interpreted this EKG as follows: EKG Interpretation Date: 11/13/21 EKG interpretation time: 17:04 Interpretation: Twelve-lead EKG shows a irregular rhythm at a rate of 131. No WV interval, QRS duration 93, QTc 352. Normal axis. Interpretation: Atrial fibrillation with rapid ventricular response. Critical Care Time Critical Care Time: Critical Care Time: Yes Total Critical Care Time: 45 Attestation: Due to a high probability of clinically significant, possibly life threatening deterioration, the patient required my highest level of attention and preparedness to intervene emergently and I personally spent this critical care time directly and personally managing the patient. This critical care time included obtaining a history; examining the patient; pulse oximetry; ordering and review of laboratory and imaging studies; arranging urgent treatment with development of a management plan; evaluation of patient's response to treatment; frequent reassessment; and, discussions with other providers as applicable. It was exclusive of separately billable procedures. Primary systems involved are cardiovascular and genitourinary Discharge Plan Discharge Patient Disposition: Admitted As Inpatient Admit Provider: David Gallardo Clinical Impression: Acute pyelonephritis, Sepsis, Atrial fibrillation with rapid ventricular response, Altered mental status, AMENA (acute kidney injury), Hypokalemia Condition: Stable Discharge Diet: Cardiac Discharge Activity: Resume usual activity Coding Level of Care Code ED Branch Operation Evaluation Manager for Chg Fwd Exam Comprehensive
--- NOTE | 2021-11-13 16:59 | XRR_ITS ---
PROCEDURE INFORMATION: Exam: XR Chest Exam date and time: 11/13/2021 5:04 PM Age: 76 years old Clinical indication: Shortness of breath; Patient HX: Could not remove rob due to patient condition; Additional info: AMS, SOB TECHNIQUE: Imaging protocol: XR of the chest. Views: 1 view. COMPARISON: CR Chest 1 [place] [id number] 09/27/2017 4:24 AM FINDINGS: Lungs: Calcified granuloma in the both lungs. The lungs are otherwise clear. Pleural spaces: Unremarkable. No pleural effusion. No pneumothorax. Heart/Mediastinum: Mild cardiomegaly. Bones/joints: Sternotomy wires. XR/XR chest 1V portable [id number] IMPRESSION: No acute findings.
--- NOTE | 2021-11-13 17:00 | ECG_ITS ---
[facility] Test Date: 2021-11-13 Pat Name: Kaitlynn Osborne Department: Room: Gender: Female Communications Senior Associate: : 1945 Requested By: Angel Espinal Order Number: [id number] Blossom MD: Darrick Cortes M.D. Measurements Intervals [place] Rate: 131 P: MN: QRS: 25 QRSD: 93 T: 120 QT: 275 QTc: 407 Interpretive Statements ATRIAL FIBRILLATION WITH RAPID VENTRICULAR RESPONSE LOW QRS VOLTAGE IN PRECORDIAL LEADS [QRS DEFLECTION < 1.0 mV IN CHEST LEADS] NONSPECIFIC ST & T-WAVE ABNORMALITY Compared to ECG 09/25/2017 06:04:07 Possible ischemia no longer present T-wave abnormality still present Electronically Signed On 11-13-2021 21:25:22 CDT by Darrick Cortes M.D. [id number] f
--- NOTE | 2021-11-13 17:08 | CTR_ITS ---
PROCEDURE INFORMATION: Exam: CT Head Without Contrast Exam date and time: 11/13/2021 5:25 PM Age: 76 years old Clinical indication: Altered mental status/memory loss; Confusion or disorientation; Additional info: AMS TECHNIQUE: Imaging protocol: Computed tomography of the head without contrast. Radiation optimization: All CT scans at this facility use at least one of these dose optimization techniques: automated exposure control; mA and/or kV adjustment per patient size (includes targeted exams where dose is matched to clinical indication); or iterative reconstruction. COMPARISON: MR cervical spin wo con* [id number] 01/01/2021 7:19 AM RADIATION DOSE METRICS: Total DLP (mGy-cm): 745.79 FINDINGS: Brain: Mild cortical volume loss. Mild hypodensities in supratentorial periventricular and subcortical white matter, consistent with microangiopathy. No intracranial hemorrhage. Cerebral ventricles: No ventriculomegaly. Paranasal sinuses: Small air-fluid level in the right maxillary sinus. The other sinuses are clear. Mastoid air cells: Small right mastoid effusion. The left mastoid is clear. Orbital cavities: Prior cataract surgery. Vasculature: No hyperdense artery. Bones/joints: Unremarkable. No acute fracture. Soft tissues: Unremarkable. CT/CT head wo con* [id number] IMPRESSION: 1. No acute intracranial abnormality. 2. Right maxillary sinusitis.
[2021-11-13 17:12] LABS: ABG PCO2 22.8 mmHg (35-45); ABG PH Result 7.67 (7.35-7.45); Arterial Blood Gas Hematocrit 37.7 % (37-47); Base Excess ABG 6.9 mmol/L (-2.0-2.0); Blood Gas Allen Test Pos; Blood Gas Operator Identificat CAK; Blood Gas Sample Site Radial, left; Blood Gas Sample Type Arterial; HCO3 ABG 26.3 mmol/L (22-26); Oxygen Device NRB
[2021-11-13 17:21] LABS: Glucose Point of Care 161 mg/dL (70-110)
[2021-11-13] MEDS: lactated ringers 1,000 ML 999 ML IV ×2 (17:28→21:16)
[2021-11-13 17:35] LABS: Basophils % 0.2 %; Hematocrit 35.3 % (37.0-47.0); Hemoglobin 11.8 g/dL (11.5-15.3); Lymphocytes # 0.8 10^3/uL (0.8-4.8); Lymphocytes % 4.9 %; Mean Corpuscular HGB Conc 33.4 g/dL (30.0-36.0); Mean Corpuscular Hemoglobin 29.2 pg (28.0-34.0); Mean Corpuscular Volume 87.4 fl (81-99); Mean Platelet Volume 12.6 fL (7.4-10.4); Monocytes # 1.8 10^3/uL (0.2-0.9); Monocytes % 11.1 %; Neutrophils # 13.28 10^3/uL (1.8-7.7); Neutrophils % 81.8 %; Nucleated Red Blood Cells % 0 %; Platelet Count 140 10^3/cmm (130-400); Red Blood Count 4.04 10^6/uL (4.1-5.3); Red Cell Distribution Width 16.6 % (12.1-15.1); White Blood Count 16.3 10^3/uL (4.0-10.0)
--- NOTE | 2021-11-13 17:45 | CTR_ITS ---
PROCEDURE INFORMATION: Exam: CTA Chest With Contrast Exam date and time: 11/13/2021 7:03 PM Age: 76 years old Clinical indication: Shortness of breath and tachypnea; Patient HX: AMS, tachypnea, SOB; Additional info: Tachypnea, AMS, tachycardia, new o2 TECHNIQUE: Imaging protocol: Computed tomographic angiography of the chest with contrast. 3D rendering (Not supervised by radiologist): MIP and/or 3D reconstructed images were created by the technologist. Radiation optimization: All CT scans at this facility use at least one of these dose optimization techniques: automated exposure control; mA and/or kV adjustment per patient size (includes targeted exams where dose is matched to clinical indication); or iterative reconstruction. Contrast material: VISI 320; Contrast volume: 95 ml; Contrast route: INTRAVENOUS (IV); COMPARISON: CR (CHEST, ) 11/13/2021 5:04 PM RADIATION DOSE METRICS: Total DLP (mGy-cm): 1483.05 FINDINGS: Pulmonary arteries: Normal. No pulmonary emboli. Aorta: Unremarkable. No aortic aneurysm. No aortic dissection. Lungs: Interstitial scarring in the peripheral upper lobes. Calcified granuloma in the right upper lobe. 4 mm right lower lobe nodule, series 2, image 144. The lungs are otherwise clear. Pleural spaces: Unremarkable. No pneumothorax. No pleural effusion. Heart: Coronary artery calcifications and/or stents. Mild cardiomegaly. Lymph nodes: Calcified mediastinal lymph nodes. Bones/joints: Median sternotomy changes. Soft tissues: Unremarkable. risk factors), consider optional CT Chest at 12 months. (Reference: Luis Eduardo) References: Francihofady H, et al. Guidelines for Management of Incidental Pulmonary Nodules Detected on CT Images: From the Fleischner Society 2017. Radiology. 2017;284(1):228-243. PROCEDURE INFORMATION: Exam: CT Abdomen And Pelvis With Contrast Exam date and time: 11/13/2021 7:03 PM Age: 76 years old Clinical indication: Shortness of breath and tachypnea; Patient HX: AMS, tachypnea, SOB; Additional info: Tachypnea, AMS, tachycardia, new o2 TECHNIQUE: Imaging protocol: Computed tomography of the abdomen and pelvis with contrast. Radiation optimization: All CT scans at this facility use at least one of these dose optimization techniques: automated exposure control; mA and/or kV adjustment per patient size (includes targeted exams where dose is matched to clinical indication); or iterative reconstruction. Contrast material: VISI 320; Contrast volume: 95 ml; Contrast route: INTRAVENOUS (IV); COMPARISON: CR (CHEST, ) 11/13/2021 5:04 PM RADIATION DOSE METRICS: Total DLP (mGy-cm): 1483.05 FINDINGS: Diaphragm: Small hiatal hernia. Liver: Hepatic cyst, Hounsfield units less than 20. No follow-up imaging recommended. Otherwise unremarkable. Gallbladder and bile ducts: Normal. No calcified stones. No ductal dilation. Pancreas: Normal. No ductal dilation. Spleen: Normal. No splenomegaly. Adrenal glands: Normal. No mass. Kidneys and ureters: Inhomogeneous parenchymal enhancement of the right kidney with mild right perinephric stranding. No calculus or hydronephrosis. The left kidney is unremarkable. Stomach and bowel: Small duodenal diverticulum. Fluid in the rectum and within the proximal and transverse colon. No visible wall thickening. The stomach and small bowel are unremarkable. Appendix: The appendix is not visualized. No secondary signs of appendicitis. Intraperitoneal space: Unremarkable. No free air. No significant fluid collection. Vasculature: Arterial calcifications. No aneurysm. Lymph nodes: Unremarkable. No enlarged lymph nodes. Urinary bladder: Rodriguez catheter in a decompressed urinary bladder. Reproductive: The uterus and ovaries are unremarkable. Bones/joints: Unremarkable. No acute fracture. Soft tissues: Unremarkable. CT/CT angio chest w abd pel w con IMPRESSION: 1. No evidence for pulmonary embolus or other acute finding. 2. 4 mm right pulmonary nodule. For patients at low risk (minimal or absent history of smoking and of other known risk factors), no routine follow-up is indicated. For patients at high risk (history of smoking or of other known IMPRESSION: 1. Findings suspicious for right pyelonephritis. Clinical correlation recommended.
[2021-11-13 17:48] LABS: Troponin(5th) Baseline 59 ng/L (0-10)
[2021-11-13] MEDS: piperacillin-tazobactam 4.5 GM in sodium chloride 0.9% (plus) 50 ML IV (17:50)
[2021-11-13 17:58] LABS: NT Pro B Type Natriuretic Pept 2078 pg/mL (0-450); Procalcitonin 15.58 ng/mL (0-0.5); Thyroid Stimulating Hormone 3.31 uIU/mL (0.27-4.20)
[2021-11-13 18:06] LABS: Add Urine Culture? Yes; Add Urine Microscopic? YES; Bacteria Urine 1+ /hpf; Bilirubin Urine Neg (Negative); Blood Urine 3+ (Negative); Glucose Urine UA Norm (Normal); Ketones Urine 2+ (Negative); Leukocyte Esterase Urine 2+ (Negative); Nitrate Urine Negative (Negative); Protein Urine 3+ (Negative); Squamous Epithelial Cell Urine 0-4 /hpf (0-5); Urine Appearance Cloudy (CLEAR); Urine Color Yellow (Yellow); Urobilinogen Urine Norm (Negative); WBC Urine >100 /hpf (0-5); pH Urine 5 (5-7)
[2021-11-13 18:09] LABS: Alanine Aminotransferase 18 U/L (0-33); Albumin Level 3.8 g/dL (3.5-5.2); Alkaline Phosphatase 59 IU/L (35-105); Anion Gap 24.4 (5-19); Aspartate Amino Transferase 39 U/L (0-32); Blood Urea Nitrogen 25 mg/dL (8-23); C Reactive Protein 312.2 mg/L (0.0-4.9); Calcium 9.4 mg/dL (8.5-10.5); Carbon Dioxide 23 mmol/L (22-29); Chloride 97 mmol/L (98-107); Globulin 4.3 g/dL (1.3-4.6); Glucose 154 mg/dL (65-115); Osmolality Calculated 301 mOsm/kg (285-295); Sodium 142 mmol/L (136-145); Total Bilirubin 1.7 mg/dL (0.15-1.2); Total Protein 8.1 g/dL (6.6-8.7)
[2021-11-13 18:10] LABS: Potassium 2.4 mmol/L (3.5-5.1)
[2021-11-13] MEDS: vancomycin 1,000 MG in sodium chloride 0.9% 250 ML 250 MG IV (18:30)
[2021-11-13 18:39] LABS: Lipase 12 U/L (13-60)
[2021-11-13] MEDS: magnesium sulfate premix 2 GM/50 ML PIGGYBACK IV (18:40)
[2021-11-13] MEDS: potassium chloride oral liq 20 mEq/15 mL UDC 40 MEQ PO (18:44)
--- NOTE | 2021-11-13 19:00 | ECG_ITS ---
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 Measurements Intervals [place] Rate: 112 P: [place]: QRS: 40 QRSD: 100 T: 73 QT: 292 QTc: 399 Interpretive Statements ATRIAL FIBRILLATION WITH RAPID VENTRICULAR RESPONSE LOW QRS VOLTAGE IN PRECORDIAL LEADS [QRS DEFLECTION < 1.0 mV IN CHEST LEADS] NONSPECIFIC ST & T-WAVE ABNORMALITY ABNORMAL RHYTHM ECG Compared to ECG 11/13/2021 17:03:52 No significant changes Electronically Signed On 11-14-2021 17:51:57 CDT by Rashid Alvarado M.D. [id number]
[2021-11-13] MEDS: iodixanol 320 mg/mL 100mL Btl IV (19:06)
--- NOTE | 2021-11-13 19:11 | PC.NURSE ---
assumed care of pt at this time pt is at ct at this time
[2021-11-13] MEDS: esmolol drip 2,500 MG/250 ML PREMIX IV (19:38)
[2021-11-13 20:30] LABS: Lactic Sepsis W/Reflex 2.1 mmol/L (0.5-2.2)
[2021-11-13 20:37] LABS: Troponin 5 2HR 60.11 ng/L (0-10)
[2021-11-13 20:39] LABS: Troponin 5 2HR Delta 1.11 ABS# (0-10)
--- NOTE | 2021-11-13 20:42 | P.HP_ITS ---
Providers/Chief Complaint Admitting Physician: David Gallardo MD Primary Care Provider: Miriam Oconnor Chief Complaint: AFIB, SOB History of Present Illness Kaitlynn Osborne is a 76 year old female with past medical history of atrial fibrillation on Eliquis, hypertension, seropositive rheumatoid arthritis, history of CAD, who presents to [facility] due to altered mental sta tus. Currently patient is alert to person, not to place, not to time, she does follow commands but is confused. She tells me she is in [facility], she tells me that her belly is bothering her, no chest pain, no shortness of breath, she does not know why she is here in the hospital, she does recognize her daughter at bedside. Daughter tells me that the last family heard from her was on Wednesday, she lives by herself, they believe that she has not taken her medication for the last 2 days, when family found her today, they found that she was short of breath, and she was confused. In the emergency room patient was found to have A. fib with RVR, started on esmolol drip, heart rates better c ontrolled, found to have sepsis secondary to right pyelonephritis, given antibiotics. She was also found to be hypokalemic, given oral potassium currently heart rates in the 120s, normotensive, afebrile, on 3 L, hospice team was called for admission. Review of Systems General: Reports: ROS unobtainable due to mental status Medications/Allergies Home Medications Medication Instructions Recorded Confirmed Last Taken Type apixaban 5 mg tablet (Eliquis) 5 mg PO BID 10/16/19 11/13/21 Unknown History aspirin 81 mg tablet,delayed 81 mg PO DAILY 10/16/19 11/13/21 Unknown History release (Adult Low Dose Aspirin) atorvastatin 10 mg tablet 10 mg PO DAILY 10/16/19 11/13/21 Unknown History metoprolol succinate 200 mg 200 mg PO DAILY 10/16/19 11/13/21 Unknown History tablet,extended release 24 hr vitamin E (dl, acetate) 180 mg 400 unit PO DAILY 10/17/19 11/13/21 Unknown History (400 unit) capsule digoxin 125 mcg (0.125 mg) tablet 62.5 mcg PO DAILY tab 02/22/20 11/13/21 Unknown History pregabalin 75 mg capsule (Lyrica) 75 mg PO TID 08/26/20 11/13/21 Unknown History cholecalciferol (vitamin D3) 50 50 mcg PO DAILY 08/27/20 11/13/21 Unknown History mcg (2,000 unit) capsule hydrochlorothiazide 12.5 mg tablet 12.5 mg PO DAILY #90 tab 01/06/21 11/13/21 Unknown Rx diclofenac sodium 1 % topical gel 2 g TOPICAL QID #200 g 04/23/21 11/13/21 Unknown Rx allopurinol 100 mg tablet 100 mg PO DAILY #30 tab 08/12/21 11/13/21 Unknown Rx leflunomide 10 mg tablet 10 mg PO DAILY #30 tab 08/12/21 11/13/21 Unknown Rx tramadol 50 mg tablet 50 mg PO Q8H PRN #60 tab 08/12/21 11/13/21 Unknown Rx alendronate 70 mg tablet (Fosamax) 70 mg PO Q7D 11/13/21 11/13/21 Unknown History Allergies Allergy/AdvReac Type Severity Reaction Status Date / Time methotrexate Allergy Unknown nervous , Verified 09/17/21 10:28 jittery, tearful Sulfa (Sulfonamide Allergy Unknown nervous, Verified 09/17/21 10:28 Antibiotics) jittery, tearful PFSH Acute PFSH: Medical History Atrial fibrillation Encounter for screening for other viral diseases Gout Hemorrhoids High risk medication use Immunization counseling Osteoarthritis Osteopenia after menopause Peripheral neuropathy Rheumatoid arthritis with rheumatoid factor Seropositive rheumatoid arthritis of multiple sites Surgical History H/O foot surgery H/O heart bypass surgery Family History Other Hypertension Stroke Social History Smoking and tobacco status: never smoked Alcohol intake: never History of recent travel: No Vitals/I&O/Wt Last Vital Signs Temp 98.4 F 11/13/21 17:12 Pulse 119 H 11/13/21 18:04 Resp 16 11/13/21 18:04 BP 171/107 11/13/21 18:04 Pulse Ox 99 11/13/21 18:04 11/13/21 11/13/21 11/13/21 06:59 14:59 22:59 Intake Total 1050 / 1050 Balance 1050 / 1050 Physical Exam Const: COMMON NORMALS: no acute distress EXAM LIMITATIONS: altered mental status ORIENTATION/CONSCIOUSNESS: Yes awake, Yes oriented to person and Yes confused; not oriented to place and not oriented to time HENMT: COMMON NORMALS: normocephalic HEAD & SCALP: normocephalic Eye: COMMON NORMALS: Equal, round and reactive pupils present Resp: COMMON NORMALS: normal respiratory effort, No retractions, No use of accessory muscles and clear to auscultation bilaterally AUSCULTATION: clear to auscultation bilaterally Cardio: COMMON NORMALS: S1 normal heart sound present and S2 normal heart sound present RATE: tachycardic RHYTHM: abnormal rhythm irregularly irregular HEART SOUNDS: S1 normal heart sound present and S2 normal heart sound present GI: COMMON NORMALS: Normal to inspection, nondistended, normoactive bowel sounds present, Soft to palpation, non-tender, No hepatosplenomegaly present, no masses and no bruits PALPATION: Yes Soft to palpation and Yes No hepatosplenomegaly present : OTHER: Bilateral CVA tenderness Extremity: COMMON NORMALS: capillary refill normal, no clubbing, cyanosis or edema, no calf tenderness and no pedal edema Neuro: COMMON NORMALS: moves all extremities and no focal motor deficits SENSORIUM/ORIENTATION: Yes alert, Yes oriented to person, No oriented to place and No oriented to time OTHER: Can wiggle her toes, can squeeze my fingers, can close her eyes, but does not follow other complex neurologic testing Data : 11/13/21 17:20 11/13/21 17:20 Micro: Microbiology 11/13/21 17:32 Blood Culture - Preliminary Blood SPECIMEN COLLECTED 11/13/21 17:39 Blood Culture - Preliminary Blood SPECIMEN COLLECTED A&P Assessment and plan (1) Acute pyelonephritis: Status: Acute (2) Sepsis: Status: Acute (3) Atrial fibrillation with rapid ventricular response: Status: Acute (4) Altered mental status: Status: Acute (5) AMENA (acute kidney injury): Status: Acute (6) Hypokalemia: Status: Acute Plan Acute encephalopathy secondary to UTI -Currently no focal neurologic deficits, no slurring of her words, no facial droop -CT of the head no acute findings -Neurochecks -Aspiration precautions Sepsis secondary to acute pyelonephritis -Right pyelonephritis seen on CT imaging, no evidence of nephrolithiasis or obst ructive uropathy -Follow urine cultures, blood cultures -MRSA PCR -Continue vancomycin, Zosyn -Full code -Eliquis for DVT prophylaxis Acute kidney injury likely sec to UTI, gentle IV hydration monitor for fluid overload Hypokalemia, oral replacement, follow serum potassium A. fib with RVR -Currently on esmolol drip -On Eliquis -Goal wean off esmolol drip continue home leflunomide, digoxin, check dig levels, metoprolol -TSH, mag -Echocardiogram in 2018 showed an EF of 65%, no regional wall motion abnormalities History of CAD Cath in 2018 showed #1 Left main has luminal irregularities ?#2 LAD has ostial, proximal to mid diffuse 80-90% bifurcating stenosis. ?There is mid 75% separate stenosis in the LAD. LAD is a moderate size and ?caliber long vessel with good targets. Diagonal 1 has proximal 75% hazy ?stenosis it is small size and caliber vessel ?#3 Left circumflex is a moderate size and caliber large vessel with ?proximal 75% stenosis ?#4 RCA is a dominant vessel with proximal 90% stenosis ?#5 Hyperdynamic LV function estimated ejection fraction 70% NSTEMI -Likely supply demand ischemia from sepsis, A. fib with RVR -Serial troponins, serial EKGs -Telemetry monitoring -Aspirin, statin, metoprolol, Eliquis Attestations Medical Necessity Statement*: Patient requires hospitalization, inpatient, greater than 2 minutes, A. fib with RVR, sepsis secondary to UTI, acute encep halopathy, hypokalemia Coding Level of Care Code Acute Psychometric Examiner for [facility] Fwd Diagnoses Acute pyelonephritis N10 Sepsis A41.9 Atrial fibrillation with rapid ventricular response I48.91 Altered mental status R41.82 AMENA (acute kidney injury) N17.9 Hypokalemia E87.6
[2021-11-13 21:13] LABS: Magnesium 2.9 mg/dL (1.7-2.3)
--- NOTE | 2021-11-13 21:52 | PC.NURSE ---
potassium pulled from pixis by prior rn,
[2021-11-13 21:58] LABS: Reflex Lactate Order REFLEX LACTIC ORDERD
[2021-11-13] MEDS: apixaban 5 mg Tablet PO (22:54)
[2021-11-13] MEDS: pantoprazole 40 mg SDV IVP (22:54)
[2021-11-13] MEDS: dextrose 5%-sod chloride 0.9% 1,000 ML 50 ML IV (22:55)
--- NOTE | 2021-11-13 23:00 | ECG_ITS ---
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 Measurements Intervals [place] Rate: 113 P: [place]: QRS: 42 QRSD: 97 T: 97 QT: 350 QTc: 481 Interpretive Statements ATRIAL FIBRILLATION WITH RAPID VENTRICULAR RESPONSE LOW QRS VOLTAGE IN PRECORDIAL LEADS [QRS DEFLECTION < 1.0 mV IN CHEST LEADS] MINIMAL ST DEPRESSION [0.025+ mV ST DEPRESSION] ABNORMAL RHYTHM ECG Compared to ECG 11/13/2021 22:22:06 ST (T wave) deviation now present T-wave abnormality no longer present Electronically Signed On 11-14-2021 17:52:41 CDT by Rashid Alvarado M.D. [id number]
[2021-11-13 23:23] LABS: Thyroid Stimulating Hormone 3.38 uIU/mL (0.27-4.20)
[2021-11-13] MEDS: lidocaine 1% 5 ML in potassium chloride premix 100 ML 25 ML IV (23:25)
[2021-11-13 23:54] LABS: Troponin 5 6HR 53.68 ng/L (0-10)
[2021-11-14] VITALS (51 sets, daily range): BP systolic 133–174; BP diastolic 73–121; PULSE 86–123; RESP 10–27; TEMP 36.6–36.8; O2SAT 93–99; BMI 24.5
[2021-11-14] LABS: Troponin 5 6HR Delta -5.32 ng/L (0-12)
[2021-11-14] MEDS: acetaminophen 325 mg Tablet 650 MG PO ×2 (00:49→21:54)
[2021-11-14] MEDS: piperacillin-tazobactam 3.375 GM in sodium chloride 0.9% (plus) 50 ML IV ×3 (01:21→18:05)
[2021-11-14] MEDS: esmolol drip 2,500 MG/250 ML PREMIX 75.6 MG IV ×2 (02:14→05:28)
[2021-11-14 05:01] LABS: Basophils % 0.2 %; Eosinophils % 0.2 %; Hematocrit 29.7 % (37.0-47.0); Hemoglobin 9.8 g/dL (11.5-15.3); Lymphocytes # 0.8 10^3/uL (0.8-4.8); Lymphocytes % 6.4 %; Mean Corpuscular Hemoglobin 29.5 pg (28.0-34.0); Mean Corpuscular Volume 89.5 fl (81-99); Mean Platelet Volume 12.7 fL (7.4-10.4); Monocytes # 1.7 10^3/uL (0.2-0.9); Monocytes % 13.1 %; Neutrophils # 10.28 10^3/uL (1.8-7.7); Neutrophils % 77.7 %; Nucleated Red Blood Cells % 0 %; Platelet Count 98 10^3/cmm (130-400); Red Blood Count 3.32 10^6/uL (4.1-5.3); Red Cell Distribution Width 16.8 % (12.1-15.1); White Blood Count 13.2 10^3/uL (4.0-10.0)
[2021-11-14 05:13] LABS: INR 1.72 (0.8-1.2)
[2021-11-14 05:33] LABS: NT Pro B Type Natriuretic Pept 1885 pg/mL (0-450); Procalcitonin 11.32 ng/mL (0-0.5)
[2021-11-14 05:48] LABS: Alanine Aminotransferase 14 U/L (0-33); Albumin Level 3.1 g/dL (3.5-5.2); Alkaline Phosphatase 49 IU/L (35-105); Anion Gap 15.2 (5-19); Aspartate Amino Transferase 26 U/L (0-32); Blood Urea Nitrogen 22 mg/dL (8-23); Calcium 8.4 mg/dL (8.5-10.5); Carbon Dioxide 24 mmol/L (22-29); Chloride 105 mmol/L (98-107); Globulin 3.6 g/dL (1.3-4.6); Glucose 154 mg/dL (65-115); Magnesium 2.2 mg/dL (1.7-2.3); Osmolality Calculated 298 mOsm/kg (285-295); Phosphorus 2.5 mg/dL (2.5-4.5); Potassium 3.2 mmol/L (3.5-5.1); Sodium 141 mmol/L (136-145); Total Bilirubin 1.4 mg/dL (0.15-1.2); Total Protein 6.7 g/dL (6.6-8.7)
[2021-11-14] MEDS: esmolol drip 2,500 MG/250 ML PREMIX 66.15 MG IV (08:44)
[2021-11-14 09:55] LABS: Digoxin 0.3 ng/mL (0.6-1.2)
[2021-11-14 09:56] LABS: Iron 20 ug/dL (37-145); Percent Saturation 10.2 % (20-50); Total Iron Binding Capacity 195 mcg/dl; Unsaturated Iron Binding 175 ug/dL (112-347)
[2021-11-14] MEDS: aspirin 81 mg EC Tablet PO (10:00)
[2021-11-14] MEDS: ondansetron 2 mg/ML SDV 2 mL 4 MG IVP ×2 (10:00→14:43)
[2021-11-14] MEDS: apixaban 5 mg Tablet PO ×2 (10:00→21:54)
[2021-11-14] MEDS: cholecalciferol (vitamin D3) 1,000 unit Tablet 2000 UNIT PO (10:00)
[2021-11-14] MEDS: digoxin 125 mcg Tablet 62.5 MCG PO (10:01)
[2021-11-14] MEDS: atorvastatin 40 mg Tablet 10 MG PO (10:02)
[2021-11-14] MEDS: potassium chloride ER 20 mEq Tablet 40 MEQ PO (10:02)
[2021-11-14] MEDS: metoprolol tartrate 50 mg Tablet 100 MG PO ×2 (10:07→20:19)
[2021-11-14 13:12] LABS: Acinetobacter baumannii Not Detected (NOT DETECT); Bacteroides fragilis Not Detected (NOT DETECT); CTX-M Not Detected (NOT DETECT); Citrobacter Not Detected (NOT DETECT); Cronobacter sakazakii Not Detected (NOT DETECT); Enterobacter cloacae complex Not Detected (NOT DETECT); Enterobacter non cloacae Not Detected (NOT DETECT); Fusobacterium necrophorum Not Detected (NOT DETECT); Fusobacterium nucleatum Not Detected (NOT DETECT); Haemophilus influenzae Not Detected (NOT DETECT); IMP Resistance Gene Not Detected (NOT DETECT); KPC Resistance Gene Not Detected (NOT DETECT); Klebsiella pneumoniae group Not Detected (NOT DETECT); Morganella morganii Not Detected (NOT DETECT); NDM Resistance Gene Not Detected (NOT DETECT); Neisseria meningitidis Not Detected (NOT DETECT); OXA Resistance Gene Not Detected (NOT DETECT); Pan Candida Not Detected (NOT DETECT); Pan Gram-Positive Not Detected (NOT DETECT); Proteus mirabilis Not Detected (NOT DETECT); Pseudomonas aeruginosa Not Detected (NOT DETECT); Salmonella Not Detected (NOT DETECT); Serratia Not Detected (NOT DETECT); Serratia marcescens Not Detected (NOT DETECT); Stenotrophomonas maltophilia Not Detected (NOT DETECT); VIM Resistance Gene Not Detected (NOT DETECT)
--- NOTE | 2021-11-14 13:22 | P.PN_ITS ---
Subjective Subjective: Admitted overnight. On examination patient is awake and alert to self, place. Slow to respond. Forgetful and confused to why she is in the hospital. Able to name her daughters for me. Unable to tell me her address. Currently on esmolol drip. Blood pressure well controlled. Mean over 65. He art rate running in high 90s. Patient has remained afebrile since admission. Vitals/I&O/Wt Last Vital Signs Temp 98.1 F 11/14/21 04:00 Pulse 86 11/14/21 12:00 Resp 15 11/14/21 12:00 BP 140/83 11/14/21 12:00 Pulse Ox 96 11/14/21 12:00 11/13/21 11/14/21 11/14/21 22:59 06:59 14:59 Intake Total 2086.392 / 2086.392 739.310 / 2825.702 982.961 / 982.961 Output Total 475 / 475 Balance 2086.392 / 2086.392 264.310 / 2350.702 982.961 / 982.961 Weight last 48 hrs Weight 60.781 kg Weight 61.235 kg Physical Exam Const: COMMON NORMALS: no acute distress and alert EXAM LIMITATIONS: altered mental status ORIENTATION/CONSCIOUSNESS: Yes awake, Yes oriented to person, Yes oriented to place and Yes confused; not oriented to time HENMT: COMMON NORMALS: normocephalic HEAD & SCALP: normocephalic Eye: COMMON NORMALS: Equal, round and reactive pupils present PUPIL: Yes Eq ual, round and reactive pupils present Resp: COMMON NORMALS: normal respiratory effort, No retractions, No use of accessory muscles and clear to auscultation bilaterally AUSCULTATION: clear to auscultation bilaterally Cardio: COMMON NORMALS: S1 normal heart sound present and S2 normal heart sound present RATE: tachycardic RHYTHM: abnormal rhythm irregularly irregular HEART SOUNDS: S1 normal heart sound present and S2 normal heart sound present GI: COMMON NORMALS: Normal to inspection, nondistended, normoactive bowel sounds present, Soft to palpation, non-tender, No hepatosplenomegaly present, no masses and no bruits PALPATION: Yes Soft to palpation and Yes No hepatosplenomegaly present : OTHER: Bilateral CVA tenderness Extremity: COMMON NORMALS: capillary refill normal, no clubbing, cyanosis or edema, no calf tenderness and no pedal edema Neuro: COMMON NORMALS: moves all extremities and no focal motor deficits SENSORIUM/ORIENTATION: Yes alert, Yes oriented to person, Yes oriented to place and No oriented to time OTHER: Can wiggle her toes, can squeeze my fingers, can close her eyes, but does not follow other complex neurologic testing Urinary Catheter Management: Rodriguez: Cath Placed During This Visit: yes Reason for Continuing Indwelling Catheter: Accurate Measurement of Urinary Output in Critically Ill Patients Urinary Catheter Date of Insertion: 11/13/21 Data : 11/14/21 04:50 11/14/21 04:50 Micro: Microbiology 11/13/21 17:39 Blood Culture - Preliminary Blood Gram Negative Rods 11/14/21 00:56 MRSA Culture - Final Nose 11/13/21 17:32 Blood Culture - Preliminary Blood SPECIMEN COLLECTED A&P Assessment and plan (1) Altered mental status: Status: Acute (2) Acute pyelonephritis: Status: Acute (3) Sepsis: Status: Acute (4) Atrial fibrillation with rapid ventricular response: Status: Acute (5) AMENA (acute kidney injury): Status: Acute (6) Hypokalemia: Status: Acute Plan Acute encephalopathy secondary to sepsis/pyelonephritis. CT head negative on admission. Aspiration precautions. Sepsis secondary to acute pyelonephritis: Continue follow-up blood cultures, MRSA swab, urine culture. Blood cultures so far negative positive for gram-negative rods. We will follow up final speciation. For now continue vancomycin and Zosyn. We will plan to discontinue vancomycin tomorrow if MRSA also negative. CT abdominal imaging negative for obstructive uropathy or nephrolithiasis. Acute kidney injury likely sec to pyelonephritis: Resolved. Continue with gentle IV hydration monitor for fluid overload Hypokalemia, will replace further. Repeat CMP in a.m. A. fib with RVR: Wean off esmolol drip. Continue with metoprolol at 100 mg twice daily dose. Continue with Eliquis 5 mg twice daily. Echocardiogram in 2018 showed an EF of 65%, no regional wall motion abnormalit ies History of CAD: No active chest pain. Continue with aspirin, statin. Check A1c, lipid panel. Elevated troponin: Most likely secondary to stress from sepsis. Continue to monitor. If patient is complaining of chest pain can do stress test for further evaluation. Full code. Clear liquid diet. Eliquis of 5 for DVT prophylaxis. Protonix OPD prophylaxis. Attestations Medical Necessity Statement*: Requested hospitalization for management of gram-negative bacteremia, sepsis, AMS secondary to pyelonephritis, atrial fibrillation with rapid ventricular response. Critical Care Time: The high probability of a clinically significant, sudden or life threatening deterioration of the patient's [cardiac, ID system(s) r equired my full and direct attention, intervention and personal management. The critical care time is as shown. This time is in addition to time spent performing any reported procedures but includes the following: [x] Data and vital sign review and interpretation [x] Patient assessment, examination and intervention [x] Documentation [x] Medication orders and management Critical Care Time (min): 60 Coding Level of Care Code Acute Human Resource Consultant for [facility] Fwd Diagnoses Acute pyelonephritis N10 Sepsis A41.9 Atrial fibrillation with rapid ventricular response I48.91 Altered mental status R41.82 AMENA (acute kidney injury) N17.9 Hypokalemia E87.6
--- NOTE | 2021-11-14 15:52 | PC.NURSE ---
this nurse assumed care approximately 1400
[2021-11-14] MEDS: vancomycin 1,000 MG in sodium chloride 0.9% 250 ML 250 MG IV (18:05)
[2021-11-14] MEDS: dextrose 5%-sod chloride 0.9% 1,000 ML 50 ML IV (18:05)
[2021-11-14] MEDS: morphine 4 mg/mL SDV 1 mL 1 MG IVP (20:09)
[2021-11-14] MEDS: pantoprazole 40 mg SDV IVP (21:54)
[2021-11-15] VITALS (27 sets, daily range): BP systolic 125–178; BP diastolic 67–108; PULSE 64–112; RESP 0–24; TEMP 36.6–36.9; O2SAT 93–99; BMI 24.8
[2021-11-15] MEDS: piperacillin-tazobactam 3.375 GM in sodium chloride 0.9% (plus) 50 ML IV ×3 (01:35→17:32)
--- NOTE | 2021-11-15 01:50 | PC.NURSE ---
BP/Stool Sample Patient's diastolic BP maintaining from 90-108. Dr. Gallardo notified, order to continue to monitor. Additionally, Patient has had multiple loose, brown, mucoid bowel movements. Dr. Gallardo notified of this also and telephone order received to gather a C Diff sample. Sample collected and sent to lab.
--- NOTE | 2021-11-15 03:11 | PC.NURSE ---
BP Patient's BP 173/112. Dr. Gallardo notified and one time order for labetalol 10 mg IVP received. Medication administered per OCT.
[2021-11-15] MEDS: labetalol 5 mg/mL SDV 20mL 10 MG IVP (03:22)
[2021-11-15 05:13] LABS: Basophils # 0.1 10^3/uL (0.0-0.1); Basophils % 0.5 %; Eosinophils # 0.2 10^3/uL (0.0-0.8); Eosinophils % 1.2 %; Hematocrit 32.9 % (37.0-47.0); Hemoglobin 10.2 g/dL (11.5-15.3); Lymphocytes % 7.9 %; Mean Corpuscular Hemoglobin 29.1 pg (28.0-34.0); Monocytes # 1.1 10^3/uL (0.2-0.9); Monocytes % 9.1 %; Neutrophils % 80.6 %; Nucleated Red Blood Cells % 0 %; Platelet Count 103 10^3/cmm (130-400); White Blood Count 12.2 10^3/uL (4.0-10.0)
[2021-11-15 05:38] LABS: Estmated Average Glucose 108; Hemoglobin A1C 5.4 % (4.0-6.0)
[2021-11-15 05:42] LABS: Alanine Aminotransferase 14 U/L (0-33); Alkaline Phosphatase 79 IU/L (35-105); Anion Gap 13.2 (5-19); Aspartate Amino Transferase 25 U/L (0-32); Blood Urea Nitrogen 18 mg/dL (8-23); Calcium 8.2 mg/dL (8.5-10.5); Carbon Dioxide 24 mmol/L (22-29); Chloride 111 mmol/L (98-107); Chol HDL Ratio 4.38 mg/dL (0.0-4.40); Cholesterol 105 mg/dL (0-200); Glucose 134 mg/dL (65-115); HDL Cholesterol 24 mg/dL (60-100); LDL Cholesterol Calculated 46 mg/dL (50-129); Magnesium 2.2 mg/dL (1.7-2.3); Osmolality Calculated 304 mOsm/kg (285-295); Phosphorus 1.9 mg/dL (2.5-4.5); Potassium 3.2 mmol/L (3.5-5.1); Sodium 145 mmol/L (136-145); Total Bilirubin 0.7 mg/dL (0.15-1.2); Triglycerides 177 mg/dL (0-150); VLDL Cholestrol Calculation 35 mg/dL (0-30)
[2021-11-15] MEDS: cholecalciferol (vitamin D3) 1,000 unit Tablet 2000 UNIT PO (08:16)
[2021-11-15] MEDS: aspirin 81 mg EC Tablet PO (08:16)
[2021-11-15] MEDS: metoprolol tartrate 50 mg Tablet 100 MG PO ×2 (08:16→21:02)
[2021-11-15] MEDS: digoxin 125 mcg Tablet 62.5 MCG PO (08:16)
[2021-11-15] MEDS: atorvastatin 40 mg Tablet 10 MG PO (08:16)
[2021-11-15] MEDS: pregabalin 75 mg Capsule PO ×2 (08:51→17:32)
[2021-11-15] MEDS: potassium chloride ER 20 mEq Tablet 40 MEQ PO (08:51)
[2021-11-15] MEDS: amlodipine 10 mg Tablet PO (08:54)
[2021-11-15] MEDS: apixaban 5 mg Tablet PO ×2 (08:54→21:02)
[2021-11-15] MEDS: digoxin 250 mcg/ml INJ 2 mL IVP (08:54)
[2021-11-15] MEDS: allopurinol 100 mg Tablet PO (08:54)
--- NOTE | 2021-11-15 10:25 | PC.NURSE ---
Report called to [facility] nurse Fauzia RN. Patient transferred by bed to room 266 accompanied by this nurse. Patient A&O X4 at time of transfer. Nurse noted to be at bedside on patient's arrival to unit.
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
[2021-11-15] MEDS: loperamide 2 mg Capsule PO (21:02)
[2021-11-15] MEDS: pantoprazole 40 mg SDV IVP (21:03)
[2021-11-16] VITALS (10 sets, daily range): BP systolic 119–182; BP diastolic 71–94; PULSE 70–91; RESP 16–18; TEMP 36.5–37.3; O2SAT 94–96
[2021-11-16] MEDS: piperacillin-tazobactam 3.375 GM in sodium chloride 0.9% (plus) 50 ML IV ×2 (01:37→09:18)
[2021-11-16 03:48] LABS: Basophils # 0.1 10^3/uL (0.0-0.1); Basophils % 0.6 %; Eosinophils # 0.3 10^3/uL (0.0-0.8); Eosinophils % 2.8 %; Hematocrit 33.5 % (37.0-47.0); Hemoglobin 10.4 g/dL (11.5-15.3); Lymphocytes # 1.4 10^3/uL (0.8-4.8); Lymphocytes % 14.3 %; Mean Corpuscular Volume 93.3 fl (81-99); Mean Platelet Volume 13.5 fL (7.4-10.4); Monocytes # 1.1 10^3/uL (0.2-0.9); Monocytes % 10.7 %; Neutrophils # 7.06 10^3/uL (1.8-7.7); Nucleated Red Blood Cells % 0 %; Platelet Count 118 10^3/cmm (130-400); Red Blood Count 3.59 10^6/uL (4.1-5.3); Red Cell Distribution Width 16.9 % (12.1-15.1); White Blood Count 9.9 10^3/uL (4.0-10.0)
[2021-11-16 04:06] LABS: Alanine Aminotransferase 20 U/L (0-33); Alkaline Phosphatase 53 IU/L (35-105); Anion Gap 14.9 (5-19); Aspartate Amino Transferase 32 U/L (0-32); Blood Urea Nitrogen 14 mg/dL (8-23); Calcium 8.1 mg/dL (8.5-10.5); Carbon Dioxide 23 mmol/L (22-29); Chloride 111 mmol/L (98-107); Globulin 3.7 g/dL (1.3-4.6); Glucose 85 mg/dL (65-115); Magnesium 2.1 mg/dL (1.7-2.3); Osmolality Calculated 302 mOsm/kg (285-295); Sodium 146 mmol/L (136-145); Total Bilirubin 0.6 mg/dL (0.15-1.2); Total Protein 6.7 g/dL (6.6-8.7)
[2021-11-16 04:09] LABS: Potassium 2.9 mmol/L (3.5-5.1)
[2021-11-16 04:10] LABS: Digoxin 0.7 ng/mL (0.6-1.2)
[2021-11-16] MEDS: potassium chloride ER 20 mEq Tablet 40 MEQ PO (05:55)
[2021-11-16] MEDS: atorvastatin 40 mg Tablet 10 MG PO (09:16)
[2021-11-16] MEDS: aspirin 81 mg EC Tablet PO (09:16)
[2021-11-16] MEDS: digoxin 125 mcg Tablet 62.5 MCG PO (09:16)
[2021-11-16] MEDS: metoprolol tartrate 50 mg Tablet 100 MG PO ×2 (09:16→20:45)
[2021-11-16] MEDS: allopurinol 100 mg Tablet PO (09:16)
[2021-11-16] MEDS: amlodipine 10 mg Tablet PO (09:17)
[2021-11-16] MEDS: cholecalciferol (vitamin D3) 1,000 unit Tablet 2000 UNIT PO (09:17)
[2021-11-16] MEDS: pregabalin 75 mg Capsule PO ×2 (09:17→17:14)
--- NOTE | 2021-11-16 10:12 | PC.SOCIAL ---
IMM Update pg 2 of IMM updated and reviewed w/ patient. Copy provided and Copy in chart updated.
[2021-11-16] MEDS: cefTRIAXone 1,000 MG in sodium chloride 0.9% (plus) 50 ML 100 MG IV (11:05)
[2021-11-16] MEDS: apixaban 5 mg Tablet PO ×2 (11:08→20:54)
--- NOTE | 2021-11-16 13:36 | PM.PN ---
Subjective Subjective: No events overnight. Patient sitting up in chair. States she finally remembers the name and date of . A lot more awake. Able to complete conversation. Denies any nausea vomiting, headache. Has remained afebrile. On room air. Vitals/I&O/Wt Last Vital Signs Temp 98.4 F 11/16/21 12:00 Pulse 84 11/16/21 12:00 Resp 18 11/16/21 12:00 BP 119/71 11/16/21 12:00 Pulse Ox 96 11/16/21 12:00 11/15/21 11/16/21 11/16/21 22:59 06:59 14:59 Intake Total 120 / 580 450 / 1030 363.958 / 363.958 Output Total 375 / 375 430 / 805 Balance -255 / 205 20 / 225 363.958 / 363.958 Weight last 48 hrs Weight 63.095 kg Weight 61.598 kg Physical Exam Const: COMMON NORMALS: no acute distress and alert EXAM LIMITATIONS: altered mental status ORIENTATION/CONSCIOUSNESS: Yes awake, Yes oriented to person, Yes oriented to place and Yes oriented to time HENMT: COMMON NORMALS: normocephalic HEAD & SCALP: normocephalic Eye: COMMON NORMALS: Equal, round and reactive pupils present PUPIL: Yes Equal, round and reactive pupils present Resp: COMMON NORMALS: normal respiratory effort, No retractions, No use of accessory muscles and clear to auscultation bilaterally AUSCULTATION: clear to auscultation bilaterally Cardio: COMMON NORMALS: S1 normal heart sound present and S2 normal heart sound present RATE: tachycardic RHYTHM: abnormal rhythm irregularly irregular HEART SOUNDS: S1 normal heart sound present and S2 normal heart sound present GI: COMMON NORMALS: Normal to inspection, nondistended, normoactive bowel sounds present, Soft to palpation, non-tender, No hepatosplenomegaly present, no masses and no bruits PALPATION: Yes Soft to palpation and Yes No hepatosplenomegaly present : OTHER: Bilateral CVA tenderness Extremity: COMMON NORMALS: capillary refill normal, no clubbing, cyanosis or edema, no calf tenderness and no pedal edema Neuro: COMMON NORMALS: moves all extremities and no focal motor deficits SENSORIUM/ORIENTATION: Yes alert, Yes oriented to person, Yes oriented to place and Yes oriented to time OTHER: Can wiggle her toes, can squeeze my fingers, can close her eyes, but does not follow other complex neurologic testing Urinary Catheter Management: Rodriguez: Cath Placed During This Visit: yes Reason for Continuing Indwelling Catheter: Accurate Measurement of Urinary Output in Critically Ill Patients Urinary Catheter Date of Insertion: 11/13/21 Data : 11/16/21 02:40 11/16/21 02:40 Micro: Microbiology 11/15/21 09:15 Stool Lactoferrin - Final Stool Enteric Pathogens (PCR) - Final Parasite Antigen Panel - Final 11/15/21 04:09 Blood Culture - Preliminary Blood Escherichia coli 11/13/21 17:32 Blood Culture - Preliminary Blood Escherichia coli 11/13/21 17:39 Blood Culture - Preliminary Blood Escherichia coli 11/13/21 12:42 Urine Culture - Final Urine,Clean Catch Escherichia coli 11/15/21 04:12 Blood Culture - Preliminary Blood NEGATIVE TO DATE A&P Assessment and plan (1) E coli bacteremia: Status: Acute (2) Altered mental status: Status: Acute (3) Acute pyelonephritis: Status: Acute (4) Sepsis: Status: Acute (5) Atrial fibrillation with rapid ventricular response: Status: Acute (6) AMENA (acute kidney injury): Status: Acute (7) Hypokalemia: Status: Acute Plan Acute encephalopathy secondary to sepsis/pyelonephritis: Resolved. CT head negative on admission. Advance diet to mechanical soft. E. coli bacteremia: Sepsis secondary to acute pyelonephritis: Blood cultures and urine culture consistent with E. coli. Repeat blood cultures from 11/15 1 out of 4 bottles again positive for E. coli. Sensitive to ceftriaxone and Levaquin. Repeat blood cultures in a.m. Switch Zosyn to ceftriaxone. Once blood cultures are negative most likely can switch over to oral Levaquin for 14 days from first negative set of blood cultures CT abdominal imaging negative for obstructive uropathy or nephrolithiasis. Acute kidney injury likely sec to pyelonephritis: Resolved. Continue with gentle IV hydration monitor for fluid overload Hypertension: Goal blood pressure less than 140/90 mmHg. Blood pressure is better now. Continue with metoprolol at home dose, amlodipine 10 mg orally. A. fib with RVR: Continue with metoprolol at 100 mg twice daily dose, oral digoxin 62.5 mcg daily. Continue with Eliquis 5 mg twice daily. Echocardiogram in 2018 showed an EF of 65%, no regional wall motion abnormalities Received 250 mcg of digoxin yesterday. Digoxin levels appropriate. History of CAD: No active chest pain. Continue with aspirin, statin. Check A1c, lipid panel. Elevated troponin: Most likely secondary to stress from sepsis. Continue to monitor. If patient is complaining of chest pain can do stress test for further evaluation. Full code. Clear liquid diet. Eliquis of 5 for DVT prophylaxis. Protonix OPD prophylaxis. Plan for day: Switch antibiotics to ceftriaxone. Repeat blood cultures tomorrow. Attestations Medical Necessity Statement*: Requires further hospitalization for management of E. 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
[2021-11-16] MEDS: pantoprazole 40 mg SDV IVP (20:54)
[2021-11-17] VITALS (9 sets, daily range): BP systolic 132–176; BP diastolic 73–92; PULSE 68–94; RESP 15–21; TEMP 36.3–36.8; O2SAT 90–95; BMI 25.4
[2021-11-17 03:28] LABS: Basophils # 0.1 10^3/uL (0.0-0.1); Basophils % 0.6 %; Eosinophils # 0.2 10^3/uL (0.0-0.8); Eosinophils % 2.6 %; Hematocrit 34.2 % (37.0-47.0); Hemoglobin 10.4 g/dL (11.5-15.3); Lymphocytes # 1.7 10^3/uL (0.8-4.8); Lymphocytes % 19.2 %; Mean Corpuscular HGB Conc 30.4 g/dL (30.0-36.0); Mean Corpuscular Hemoglobin 28.9 pg (28.0-34.0); Mean Platelet Volume 12.8 fL (7.4-10.4); Monocytes % 10.7 %; Neutrophils # 6.02 10^3/uL (1.8-7.7); Neutrophils % 66.5 %; Nucleated Red Blood Cells % 0 %; Platelet Count 115 10^3/cmm (130-400); Red Cell Distribution Width 16.8 % (12.1-15.1); White Blood Count 9.1 10^3/uL (4.0-10.0)
[2021-11-17 03:41] LABS: Alanine Aminotransferase 16 U/L (0-33); Albumin Level 2.7 g/dL (3.5-5.2); Alkaline Phosphatase 50 IU/L (35-105); Anion Gap 16.2 (5-19); Aspartate Amino Transferase 24 U/L (0-32); Blood Urea Nitrogen 15 mg/dL (8-23); Calcium 8.4 mg/dL (8.5-10.5); Carbon Dioxide 21 mmol/L (22-29); Chloride 107 mmol/L (98-107); Globulin 3.5 g/dL (1.3-4.6); Glucose 92 mg/dL (65-115); Osmolality Calculated 292 mOsm/kg (285-295); Potassium 3.2 mmol/L (3.5-5.1); Sodium 141 mmol/L (136-145); Total Bilirubin 0.4 mg/dL (0.15-1.2); Total Protein 6.2 g/dL (6.6-8.7)
[2021-11-17] MEDS: potassium chloride ER 20 mEq Tablet 40 MEQ PO (07:18)
[2021-11-17] MEDS: allopurinol 100 mg Tablet PO (08:25)
[2021-11-17] MEDS: digoxin 125 mcg Tablet 62.5 MCG PO (08:26)
[2021-11-17] MEDS: amlodipine 10 mg Tablet PO (08:26)
[2021-11-17] MEDS: aspirin 81 mg EC Tablet PO (08:26)
[2021-11-17] MEDS: atorvastatin 40 mg Tablet 10 MG PO (08:26)
[2021-11-17] MEDS: cholecalciferol (vitamin D3) 1,000 unit Tablet 2000 UNIT PO (08:26)
[2021-11-17] MEDS: pregabalin 75 mg Capsule PO ×2 (08:26→17:11)
[2021-11-17] MEDS: metoprolol tartrate 50 mg Tablet 100 MG PO ×2 (08:33→20:17)
[2021-11-17] MEDS: apixaban 5 mg Tablet PO ×2 (08:35)
[2021-11-17] MEDS: cefTRIAXone 1,000 MG in sodium chloride 0.9% (plus) 50 ML 100 MG IV (10:23)
--- NOTE | 2021-11-17 11:52 | P.PN_ITS ---
Subjective Subjective: Patient was seen this morning, she sitting up in bed, tells me that she is feeling a lot better, her repeat blood cultures were positive, Vitals/I&O/Wt Last Vital Signs Temp 97.5 F L 11/17/21 11:35 Pulse 77 11/17/21 11:35 Resp 16 11/17/21 11:35 BP 149/74 11/17/21 11:35 Pulse Ox 92 11/17/21 11:35 11/16/21 11/17/21 11/17/21 22:59 06:59 14:59 Intake Total 290 / 773.958 50 / 823.958 200 / 200 Output Total 200 / 650 Balance 90 / 123.958 50 / 173.958 200 / 200 Weight last 48 hrs Weight 63.095 kg Weight 63.095 kg Physical Exam Const: COMMON NORMALS: no acute distress and patient oriented x3 Resp: COMMON NORMALS: normal respiratory effort, No retractions, No use of accessory muscles and clear to auscultation bilaterally AUSCULTATION: clear to auscultation bilaterally Cardio: COMMON NORMALS: regular rate, regular rhythm, S1 normal heart sound present and S2 normal heart sound present RATE: regular rate RHYTHM: regular rhythm HEART SOUNDS: S1 normal heart sound present and S2 normal heart sound present GI: COMMON NORMALS: Normal to inspection, nondistended, normoactive bowel sounds present, Soft to palpation, non-tender and No hepatosplenomegaly present PALPATION: Yes Soft to palpation and Yes No hepatosplenomegaly present Extremity: COMMON NORMALS: no pedal edema Neuro: COMMON NORMALS: patient oriented x3 Psych: COMMON NORMALS: mental status grossly normal Urinary Catheter Management: Rodriguez: Cath Placed During This Visit: yes, but has since been removed by the nurse Reason for Continuing Indwelling Catheter: Accurate Measurement of Urinary Output in Critically Ill Patients Urinary Catheter Date of Insertion: 11/13/21 Date Urinary Catheter Removed: 11/16/21 Time Urinary Catheter Discontinued: 16:24 Data : 11/17/21 02:48 11/17/21 02:48 Micro: Microbiology 11/17/21 02:42 Blood Culture - Preliminary Blood SPECIMEN COLLECTED 11/17/21 02:48 Blood Culture - Preliminary Blood SPECIMEN COLLECTED 11/15/21 09:15 Stool Lactoferrin - Final Stool Enteric Pathogens (PCR) - Final Parasite Antigen Panel - Final 11/15/21 04:09 Blood Culture - Preliminary Blood Escherichia coli 11/13/21 17:32 Blood Culture - Preliminary Blood Escherichia coli 11/13/21 17:39 Blood Culture - Preliminary Blood Escherichia coli 11/13/21 12:42 Urine Culture - Final Urine,Clean Catch Escherichia coli A&P Assessment and plan (1) E coli bacteremia: Status: Acute (2) Altered mental status: Status: Acute (3) Acute pyelonephritis: Status: Acute (4) Sepsis: Status: Acute (5) Atrial fibrillation with rapid ventricular response: Status: Acute (6) AMENA (acute kidney injury): Status: Acute (7) Hypokalemia: Status: Acute Plan Acute encephalopathy secondary to sepsis/pyelonephritis: Resolved. CT head negative on admission. Advance diet to cardiac diet E. coli bacteremia: Sepsis secondary to acute pyelonephritis: Blood cultures and urine culture consistent with E. coli. Repeat blood cultures from 11/15 1 out of 4 bottles again positive for E. coli. Sensitive to ceftriaxone and Levaquin. Repeat blood cultures in a.m. Switch Zosyn to ceftriaxone. Once blood cultures are negative most likely can switch over to oral Levaquin for 14 days from first negative set of blood cultures CT abdominal imaging negative for obstructive uropathy or nephrolithiasis. Acute kidney injury likely sec to pyelonephritis: Resolved. Continue with gentle IV hydration monitor for fluid overload Hypertension: Goal blood pressure less than 140/90 mmHg. Blood pressure is better now. Continue with metoprolol at home dose, amlodipine 10 mg orally. A. fib with RVR: Continue with metoprolol at 100 mg twice daily dose, oral digoxin 62.5 mcg daily. Continue with Eliquis 5 mg twice daily. Echocardiogram in 2018 showed an EF of 65%, no regional wall motion abno rmalities Received 250 mcg of digoxin yesterday. Digoxin levels appropriate. History of CAD: No active chest pain. Continue with aspirin, statin. Check A1c, lipid panel. Elevated troponin: Most likely secondary to stress from sepsis. Continue to monitor. If patient is complaining of chest pain can do stress test for further evaluation. Hypokalemia, replace p.o. potassium Full code. Cardiac diet Eliquis of 5 for DVT prophylaxis. Protonix OPD prophylaxis. Plan for day: Continue Rocephin, repeat blood cultures today, likely discharge tomorrow if repeat blood cultures are negative Attestations Medical Necessity Statement*: Patient requires hospitalization for recurrent E. coli bacteremia, UTI, pyelonephritis, A. 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
[2021-11-17] MEDS: pantoprazole DR 40 mg Tablet PO (20:18)
[2021-11-18 03:08] VITALS: BP 157/76; PULSE 79; RESP 19; TEMP 36.7; O2SAT 93
[2021-11-18 05:35] LABS: Hematocrit 33.3 % (37.0-47.0); Hemoglobin 10.8 g/dL (11.5-15.3); Mean Corpuscular HGB Conc 32.4 g/dL (30.0-36.0); Mean Corpuscular Hemoglobin 29.1 pg (28.0-34.0); Mean Corpuscular Volume 89.8 fl (81-99); Mean Platelet Volume 12.6 fL (7.4-10.4); Platelet Count 156 10^3/cmm (130-400); Red Blood Count 3.71 10^6/uL (4.1-5.3); Red Cell Distribution Width 16.4 % (12.1-15.1); White Blood Count 7.6 10^3/uL (4.0-10.0)
[2021-11-18 05:54] LABS: Anion Gap 14.1 (5-19); Blood Urea Nitrogen 13 mg/dL (8-23); Calcium 8.9 mg/dL (8.5-10.5); Carbon Dioxide 24 mmol/L (22-29); Chloride 105 mmol/L (98-107); Glucose 101 mg/dL (65-115); Osmolality Calculated 290 mOsm/kg (285-295); Potassium 3.1 mmol/L (3.5-5.1); Sodium 140 mmol/L (136-145)
[2021-11-18 06:56] LABS: Slide Review Slide Review Perform
[2021-11-18 07:00] LABS: Absolute Eosinophils 0.2 10^3/cmm (0.0-0.7); Absolute Segmented Neutrophil 3.6 10/cmm (1.6-7.1); Band Neutrophils Absolute 1.4 10^3/cmm (0.0-1.2); Eosinophils 3 %; Lymphocytes 18 %; Lymphocytes Absolute 1.5 10^3/cmm (1.2-3.4); Monocytes Absolute 0.9 10^3/cmm (0.1-0.6); Segmented Neutrophils 47 %; Total Cells Counted 100 (0-100)
[2021-11-18 07:01] LABS: Absolute Neutrophil 4.9 10^3/cmm (1.4-6.5); Platelet Estimate Normal (Normal); Poikilocytosis 1+
[2021-11-18 08:00] VITALS: BP 149/69; PULSE 92; RESP 14; TEMP 37; O2SAT 92
[2021-11-18] MEDS: atorvastatin 40 mg Tablet 10 MG PO (08:38)
[2021-11-18] MEDS: potassium chloride ER 20 mEq Tablet 40 MEQ PO (08:38)
[2021-11-18] MEDS: allopurinol 100 mg Tablet PO (08:38)
[2021-11-18] MEDS: pregabalin 75 mg Capsule PO (08:38)
[2021-11-18] MEDS: aspirin 81 mg EC Tablet PO (08:38)
[2021-11-18] MEDS: apixaban 5 mg Tablet PO (08:38)
[2021-11-18] MEDS: cholecalciferol (vitamin D3) 1,000 unit Tablet 2000 UNIT PO (08:38)
[2021-11-18] MEDS: metoprolol tartrate 50 mg Tablet 100 MG PO (08:38)
[2021-11-18] MEDS: amlodipine 10 mg Tablet PO (08:38)
[2021-11-18 08:39] VITALS: PULSE 92
[2021-11-18] MEDS: digoxin 125 mcg Tablet 62.5 MCG PO (08:39)
--- NOTE | 2021-11-18 10:03 | PC.CHAP ---
Pastoral Care Encounter/Spiritual Assessment Type of Contact [] Declined rehabilitation coordinator visit [] Patient/Family/Request visit [] Outpatient visit [] Follow-up visit [] Physician referral [] Code/Alert [x] Routine visit [] Staff referral [] Actively dying [] Patient sleeping [] Family support [] [] Out of room [] Palliative care [] [] Receiving care in room [] Pre-surgical visit [] Trauma [] Long length of stay [] ICU visit [] Other: Relational/Emotional Strength [x] Patient feels connected with others/family/visitors/staff [] Distress [] Loneliness/isolation [] Abandonment Spirituality of Patient [x] Person of Sona [] Attends Cheondoism of their Sona [x] Believes in Prayer [] Reads Bible or Confucianist materials [] There are Spiritual issues to be addressed Planting Machine Operator Interventions [x] Prayer [x] Active listening [x] Non-anxious presence [x] Spiritual/emotional support [] Crisis/trauma care [] Spiritual counseling [] Bereavement support [] Provided bereavement packet [] Provided Bible/devotional materials [] Provided toy/stuffed animal, coloring book to patient or family member [] Provided Communion [] Anointing/[place] [] Salvation [x] Completed spiritual assessment [] Other: Impact on Illness or Injury [] Angry [] Fearful [] Anxious [] Often cries [] Exhaustion [] Unable to work [] Unable to attend roman catholic [] Unable to walk/stand [] Unable to read [] Unable to drive [] Unable to eat/drink [] Unable to sleep [] Unable to be with family [] Patient intubated [] Other: Summary Pt was sitting on edge of bed looking over a bag of clothing when Planting Machine Operator entered room. She said she is preparing to be going home today. Her daughter would be arriving around noon to pick her up. Her other daughter had brought clothes to her but she is not sure about whether the clothes fit or whether she has everything she needs. Pt has 12 grandsons and 1 grand daughter. Pt described herself as a person of sona, believing in God and praying, but she does not nor has she made a habit of attending bahai. Time spent with patient 15m
[2021-11-18] MEDS: cefTRIAXone 1,000 MG in sodium chloride 0.9% (plus) 50 ML 100 MG IV (10:23)
--- NOTE | 2021-11-18 11:23 | P.DS_ITS ---
Discharge Providers Date of Admission: 11/13/21 20:06 Date of Discharge: November 18, 2021 Attending Provider at Admission: David Gallardo MD Attending Provider at Discharge: David Gallardo MD Primary Care Provider: Miriam Oconnor Diagnoses at Discharge Discharge Diagnosis (1) E coli bacteremia: Status: Acute (2) Altered mental status: Status: Acute (3) Acute pyelonephritis: Status: Acute (4) Sepsis: Status: Acute (5) Atrial fibrillation with rapid ventricular response: Status: Acute (6) AMENA (acute kidney injury): Status: Acute (7) Hypokalemia: Status: Acute Reason for Visit Reason for Visit: AFIB, SOB Hospital Course Hospital Course Kaitlynn Osborne is a 76 year old female with past medical history of atrial fibrillation on Eliquis, hypertension, seropositive rheumatoid arthritis, history of CAD, who presents to [facility] due to altered mental status. Patient was admitted to [facility] for acute encephalopathy secondary to sepsis, pyelonephritis, E. coli bacteremia. Patient was treated with broad- spectrum antibiotic therapy, mentation improved, following commands, afebrile CT scan of abdomen pelvis negative for obstructive uropathy or nephrolithiasis. She also had AMENA, which improved with IV hydration. Patient's initial blood cultures were positive for E. coli pansensitive second set of blood cultures were also positive for E. coli, she was monitored for another 24 hours in the hospital until her third set of blood cultures were negative. So far her third set of blood cultures have been negative for 24 hours, remains afebrile, no significant leukocytosis, responding well to antibiotics, mentation back to baseline I have discharged her 7 remaining days of ciprofloxacin with instructions to hold leflunomide for at least 1 week. Blood cultures to be fo llowed up with outpatient physician. Patient also had A. fib with RVR on presentation, she will be discharged on metoprolol 100 twice daily, digoxin 62.5 mg daily, continue home Eliquis 5 mg twice daily, echocardiogram in 2018 showed EF of 65% no regional wall motion abnormalities. Patient also had elevated troponins most likely secondary to sepsis, no complaints of chest pain, follow-up with outpatient physician, for consideration of stress testing if she were to have chest pain. Physical Exam Const: COMMON NORMALS: no acute distress and patient oriented x3 Resp: COMMON NORMALS: normal respiratory effort, No retractions, No use of accessory muscles and clear to auscultation bilaterally AUSCULTATION: clear to auscultation bilaterally Cardio: COMMON NORMALS: regular rate, regular rhythm, S1 normal heart sound present and S2 normal heart sound present RATE: regular rate RHYTHM: regular rhythm HEART SOUNDS: S1 normal heart sound present and S2 normal heart sound present GI: COMMON NORMALS: Normal to inspection, nondistended, normoactive bowel sounds present, Soft to palpation, non-tender and No hepatosplenomegaly present PALPATION: Yes Soft to palpation and Yes No hepatosplenomegaly present Extremity: COMMON NORMALS: no pedal edema Neuro: COMMON NORMALS: patient oriented x3 Psych: COMMON NORMALS: mental status grossly normal Urinary Catheter Management: Rodriguez: Cath Placed During This Visit: yes, but has since been removed by the nurse Reason for Continuing Indwelling Catheter: Accurate Measurement of Urinary Output in Critically Ill Patients Urinary Catheter Date of Insertion: 11/13/21 Date Urinary Catheter Removed: 11/16/21 Time Urinary Catheter Discontinued: 16:24 Discharge Data Studies Completed and Pending Completed Studies During Hospitalization Category Date Time Status CT head wo con* [id number] Urgent Cat Scan 11/13/21 17:[address] abdomen pelvis [CT angio chest w abd pel w Cat Scan 11/13/21 17:45 Completed con] Stat XR chest 1V portable [id number] Urgent Exams 11/13/21 16:59 Completed Pending at discharge Category Date Time Status Basic Metabolic Panel AM LABS Lab 11/19/21 04:00 Ordered Basic Metabolic Panel AM LABS Lab 11/20/21 04:00 Ordered Blood Culture AM LABS Lab 11/15/21 04:12 Results Blood Culture AM LABS Lab 11/17/21 02:42 Results Blood Culture Stat Lab 11/13/21 17:39 Results Complete Blood Count w/Auto AM LABS Lab 11/19/21 04:00 Ordered Complete Blood Count w/Auto AM LABS Lab 11/20/21 04:00 Ordered Radiology Impressions Chest X-Ray 11/13/21 16:59 IMPRESSION: No acute findings. Head CT 11/13/21 17:08 IMPRESSION: 1. No acute intracranial abnormality. 2. Right maxillary sinusitis. Chest/Abdomen/Pelvis CT 11/13/21 17:45 IMPRESSION: 1. No evidence for pulmonary embolus or other acute finding. 2. 4 mm right pulmonary nodule. For patients at low risk (minimal or absent history of smoking and of other known risk factors), no routine follow-up is indicated. For patients at high risk (history of smoking or of other known IMPRESSION: 1. Findings suspicious for right pyelonephritis. Clinical correlation recommended. Laboratory Results WBC 7.6 10^3/uL (4.0-10.0) 11/18/21 04:25 RBC 3.71 10^6/uL (4.1-5.3) L 11/18/21 04:25 Hgb 10.8 g/dL (11.5-15.3) L 11/18/21 04:25 Hct 33.3 % (37.0-47.0) L 11/18/21 04:25 MCV 89.8 fl (81-99) D 11/18/21 04:25 MCH 29.1 pg (28.0-34.0) 11/18/21 04:25 MCHC 32.4 g/dL (30.0-36.0) D 11/18/21 04:25 RDW 16.4 % (12.1-15.1) H 11/18/21 04:25 Plt Count 156 10^3/cmm (130-400) D 11/18/21 04:25 MPV 12.6 fL (7.4-10.4) H 11/18/21 04:25 Neut % (Auto) 66.5 % 11/17/21 02:48 Lymph % (Auto) Not Reportable 11/18/21 04:25 Thurston % (Auto) Not Reportable 11/18/21 04:25 Eos % (Auto) 2.6 % 11/17/21 02:48 Baso % (Auto) 0.6 % 11/17/21 02:48 Neut # (Auto) 6.02 10^3/uL (1.8-7.7) 11/17/21 02:48 Lymph # (Auto) Not Reportable 11/18/21 04:25 Thurston # (Auto) Not Reportable 11/18/21 04:25 Eos # (Auto) 0.2 10^3/uL (0.0-0.8) 11/17/21 02:48 Baso # (Auto) 0.1 10^3/uL (0.0-0.1) 11/17/21 02:48 Nucleated RBC % (auto) 0 % 11/17/21 02:48 Total Counted 100 (0-100) 11/18/21 04:25 Atypical Lymphs % 2.0 % (0-5) 11/18/21 04:25 Absolute Neutrophils 4.9 10^3/cmm (1.4-6.5) 11/18/21 04:25 Segmented Neutrophils 47 % 11/18/21 04:25 Abs Segm Neuts (Man) 3.6 10/cmm (1.6-7.1) 11/18/21 04:25 Band Neutrophils 18.0 % 11/18/21 04:25 Abs Band Neuts (Man) 1.4 10^3/cmm (0.0-1.2) H 11/18/21 04:25 Absolute Lymphocytes 1.5 10^3/cmm (1.2-3.4) 11/18/21 04:25 Lymphocytes (Manual) 18 % 11/18/21 04:25 Monocytes (Manual) 12.0 % 11/18/21 04:25 Absolute Monocytes 0.9 10^3/cmm (0.1-0.6) H 11/18/21 04:25 Eosinophils (Manual) 3 % 11/18/21 04:25 Absolute Eosinophils 0.2 10^3/cmm (0.0-0.7) 11/18/21 04:25 Basophils (Manual) 0.0 % 11/18/21 04:25 Absolute Basophils 0.0 10^3/cmm (0.0-0.2) 11/18/21 04:25 Nucleated RBCs # 0.0 /100WBC 11/17/21 02:48 Platelet Estimate Normal (Normal) 11/18/21 04:25 Poikilocytosis 1+ H 11/18/21 04:25 PT 20.60 SECONDS (12.1-14.9) H 11/14/21 04:50 INR 1.72 (0.8-1.2) H 11/14/21 04:50 Specimen Type Arterial 11/13/21 17:00 Sample Site Radial, left 11/13/21 17:00 ABG pH 7.67 (7.35-7.45) H* 11/13/21 17:00 ABG pCO2 22.8 mmHg (35-45) L 11/13/21 17:00 ABG pO2 404.0 mmHg (80.0-100.0) H 11/13/21 17:00 ABG HCO3 26.3 mmol/L (22-26) H 11/13/21 17:00 ABG Base Excess 6.9 mmol/L (-2.0-2.0) H 11/13/21 17:00 Alex Test Pos 11/13/21 17:00 Hematocrit 37.7 % (37-47) 11/13/21 17:00 O2 Delivery Device Nrb 11/13/21 17:00 O2 Liters/Min 15.0 % 11/13/21 17:00 Service Associate ID Cak 11/13/21 17:00 Sodium 140 mmol/L (136-145) 11/18/21 04:25 Potassium 3.1 mmol/L (3.5-5.1) L 11/18/21 04:25 Chloride 105 mmol/L (98-107) 11/18/21 04:25 Carbon Dioxide 24 mmol/L (22-29) 11/18/21 04:25 Anion Gap 14.1 (5-19) 11/18/21 04:25 BUN 13 mg/dL (8-23) 11/18/21 04:25 Creatinine 0.6 mg/dL (0.5-0.9) 11/18/21 04:25 GFR Calculation Not Reportable 11/18/21 04:25 Glucose 101 mg/dL (65-115) 11/18/21 04:25 POC Glucose 161 mg/dL (70-110) H 11/13/21 17:18 Estimat Average Glucose 108 11/15/21 04:09 Hemoglobin A1c 5.4 % (4.0-6.0) 11/15/21 04:09 Calculated Osmolality 290 mOsm/kg (285-295) 11/18/21 04:25 Lactic Acid 1.0 mmol/L (0.5-2.2) 11/14/21 04:50 Calcium 8.9 mg/dL (8.5-10.5) 11/18/21 04:25 Phosphorus 2.0 mg/dL (2.5-4.5) L 11/16/21 02:40 Magnesium 2.1 mg/dL (1.7-2.3) 11/16/21 02:40 Iron 20 ug/dL (37-145) L 11/14/21 04:50 TIBC 195 mcg/dl 11/14/21 04:50 % Saturation 10.2 % (20-50) L 11/14/21 04:50 Unsat Iron Binding 175 ug/dL (112-347) 11/14/21 04:50 Total Bilirubin 0.4 mg/dL (0.15-1.2) 11/17/21 02:48 AST 24 U/L (0-32) 11/17/21 02:48 ALT 16 U/L (0-33) 11/17/21 02:48 Alkaline Phosphatase 50 IU/L (35-105) 11/17/21 02:48 Troponin T Baseline 59 ng/L (0-10) H 11/13/21 17:20 Troponin T 120 Minute 60.11 ng/L (0-10) H 11/13/21 19:57 Delta Troponin T 1.11 ABS# (0-10) 11/13/21 19:57 Troponin T Hi Sens 6Hr 53.68 ng/L (0-10) H 11/13/21 23:30 Troponin T Hi Sens 6Hr Delta -5.32 ng/L (0-12) L 11/13/21 23:30 C-Reactive Protein 312.2 mg/L (0.0-4.9) H 11/13/21 17:20 NT-Pro-B Natriuret Pep 1885 pg/mL (0-450) H 11/14/21 04:50 Total Protein 6.2 g/dL (6.6-8.7) L 11/17/21 02:48 Albumin 2.7 g/dL (3.5-5.2) L 11/17/21 02:48 Globulin 3.5 g/dL (1.3-4.6) 11/17/21 02:48 Triglycerides 177 mg/dL (0-150) H 11/15/21 04:09 Cholesterol 105 mg/dL (0-200) 11/15/21 04:09 LDL Cholesterol, Calc 46 mg/dL (50-129) L 11/15/21 04:09 Total VLDL Cholesterol 35 mg/dL (0-30) H 11/15/21 04:09 HDL Cholesterol 24 mg/dL (60-100) L 11/15/21 04:09 Cholesterol/HDL Ratio 4.38 mg/dL (0.0-4.40) 11/15/21 04:09 Lipase 12 U/L (13-60) L 11/13/21 17:20 Procalcitonin 11.32 ng/mL (0-0.5) H 11/14/21 04:50 TSH 3.38 uIU/mL (0.27-4.20) 11/13/21 19:57 Urine Color Yellow (Yellow) 11/13/21 12:42 Urine Appearance Cloudy (CLEAR) 11/13/21 12:42 Urine pH 5 (5-7) 11/13/21 12:42 Ur Specific Ramsey 1.020 (1.005-1.030) 11/13/21 12:42 Urine Protein 3+ (Negative) H 11/13/21 12:42 Urine Glucose (UA) Norm (Normal) 11/13/21 12:42 Urine Ketones 2+ (Negative) H 11/13/21 12:42 Urine Blood 3+ (Negative) H 11/13/21 12:42 Urine Nitrate Negative (Negative) 11/13/21 12:42 Urine Bilirubin Neg (Negative) 11/13/21 12:42 Urine Urobilinogen Norm mg/dL (Negative) 11/13/21 12:42 Ur Leukocyte Esterase 2+ (Negative) H 11/13/21 12:42 Urine RBC 10-15 /hpf (0-2) H 11/13/21 12:42 Urine WBC >100 /hpf (0-5) H 11/13/21 12:42 Ur Squamous Epith Cells 0-4 /hpf (0-5) H 11/13/21 12:42 Amorphous Sediment Not Reportable 11/13/21 12:42 Urine Bacteria 1+ /hpf (NONE) H 11/13/21 12:42 Digoxin 0.7 ng/mL (0.6-1.2) 11/16/21 02:40 Vitals Last Vital Signs Temp 98.6 F 11/18/21 08:00 Pulse 92 11/18/21 08:39 Resp 14 11/18/21 08:00 BP 149/69 11/18/21 08:00 Pulse Ox 92 11/18/21 08:00 Discharge Plan Discharge Patient Disposition: Home Condition: Stable Prescriptions: New metoprolol tartrate 100 mg tablet 100 mg PO BID@0900,2100 30 Days Qty: 60 0RF ciprofloxacin HCl [Cipro] 500 mg tablet 500 mg PO BID 7 Days Qty: 14 0RF amlodipine 10 mg Tablet 10 mg PO DAILY 30 Days Qty: 30 0RF Continued diclofenac sodium 1 % gel 2 g topical QID Qty: 200 2RF Rx Instructions: apply to affected area as needed tramadol 50 mg tablet 50 mg PO Q8H PRN (Reason: pain) Qty: 60 1RF allopurinol 100 mg tablet 100 mg PO DAILY Qty: 30 4RF vitamin E (dl, acetate) 400 unit capsule 400 unit PO DAILY 0RF aspirin [Adult Low Dose Aspirin] 81 mg tablet,delayed release (DR/EC) 81 mg PO DAILY 0RF Eliquis 5 mg tablet 5 mg PO BID 0RF atorvastatin 10 mg tablet 10 mg PO DAILY 0RF digoxin 125 mcg (0.125 mg) tablet 62.5 mcg PO DAILY 0RF cholecalciferol (vitamin D3) 50 mcg (2,000 unit) capsule 50 mcg PO DAILY 0RF pregabalin [Lyrica] 75 mg capsule 75 mg PO TID 0RF hydrochlorothiazide 12.5 mg tablet 12.5 mg PO DAILY Qty: 90 3RF Fosamax 70 mg tablet 70 mg PO Q7D 0RF Held leflunomide 10 mg tablet 10 mg PO DAILY Qty: 30 3RF Hold Instructions: Resume on 11/26/21. Discontinued metoprolol succinate 200 mg tablet extended release 24 hr 200 mg PO DAILY 0RF Discharge Orders: Discharge Order (Routine); Ordered 11/18/21 Ordered By: David Gallardo Referrals: [facility] [Outside] Miriam Oconnor [Primary Care Provider] - 1-3 days Discharge Diet: Cardiac Discharge Activity: Resume usual activity Patient Instructions: Ciprofloxacin (By mouth), Metoprolol (By mouth) (Lopressor, Toprol XL), Amlodipine (By mouth), Urinary Tract Infection in Women (DC), Opioid Safety Activity Restrictions/Additional Instructions: -For UTI please take antibiotics as prescribed -Please follow-up with primary care provider 1 week -If you feel lightheaded, dizzy go to the emergency room -Hold leflunomide until you finish antibiotics Discharge Attestations Time Spent in Discharge Care*: less than 30 min Quality Metrics Clinical Quality Measures [ No reported AMI, CVA or VTE this stay] Coding Level of Care Code Acute Chg FW DC note Diagnoses E coli bacteremia R78.81; B96.20 Altered mental status R41.82 Acute pyelonephritis N10 Sepsis A41.9 Atrial fibrillation with rapid ventricular response I48.91 AMENA (acute kidney injury) N17.9 Hypokalemia E87.6
[2021-11-18 12:00] VITALS: BP 118/61; PULSE 74; RESP 12; TEMP 36.9; O2SAT 93
--- NOTE | 2021-11-18 12:15 | PC.SOCIAL ---
IMM Updated Updated pt on IMM. No questions voiced. Provided pt a copy. Initialed, dated, & timed copy in chart.
[2021-11-18 12:49] VITALS: BP 118/61; PULSE 74; RESP 12; TEMP 36.9; O2SAT 93
--- NOTE | 2021-11-18 12:50 | PC.NURSE ---
IV removed intact. Patient tolerated well. Patient is A&Ox3. Respirations even and non-labored on room air. Reviewed patient's discharge with patient and daughter at this time. Including the changes made to her blood pressure medications and the medications to hold until her follow up appointment in November. Patient and daughter verbalized understanding and patient was wheel chaired to private car at this time.
[2021-11-21 10:59] LABS: Leukemia Profile (BBPL) See Report; Lymphoma Profile (BBPL) See Report
--- NOTE | 2021-11-25 12:49 | PC.SOCIAL ---
Per Dr Gallardo: Pt will need follow up with Dr Smith in Hematology. Spoke with Codi and pt will be a new pt.Dr Smith is out all next week and booked up rest of the month. Appt made with Dr Horan for 12/03/2021 arrival time of 9am to check in for a 10am appt. Called patient and she was in her car. Offered to text the appt date and time and information to her which she appreciates. This was done. Clinic will also contact her later this week to verify appt. NO questions voiced.
== END 2021-11-18 12:48 | disposition home health service (06) | DRG 871 ==
LOC: ER 20:06 → ICU 20:24 → MEDSURG 11-15 10:37
PROVIDERS: Student in an Organized Health Care Education/Training Program; Admitting Provider Family Medicine; Emergency Provider Emergency Medicine; PCP Registered Nurse; Visit Provider Family Medicine
DX: A41.51 Sepsis due to Escherichia coli [E. coli] (principal); G93.41 Metabolic encephalopathy; N10 Acute pyelonephritis; N17.9 Acute kidney failure, unspecified; R65.20 Severe sepsis without septic shock; I48.91 Unspecified atrial fibrillation; Z79.01 Long term (current) use of anticoagulants; I10 Essential (primary) hypertension; Z79.82 Long term (current) use of aspirin; E87.6 Hypokalemia; R77.8 Other specified abnormalities of plasma proteins; I25.10 Atherosclerotic heart disease of native coronary artery without angina pectoris
CPT/HCPCS: 36415; 36416; 36600; 70450; 71045; 71275; 74177; 80048; 80053; 80061; 80162; 80503; 81001; 82803; 82962; 83036; 83540; 83550; 83605; 83630; 83690; 83735; 83880; 84100; 84145; 84443; 84484; 85007; 85025; 85610; 86140; 87040; 87077; 87086; 87150; 87186; 87205; 87493; 87506; 87641; 88184; 88185; 93005; 96365; 96366; 96367; 96375; 97116; 97161; 99291; C9113; J0696; J1160; J2270; J2405; J2543; J3370; J3475; J3480; J3490; J7050; Q9967

== ENCOUNTER → 2021-12-11 10:16 | Outpatient (BNVA) | payer MEDICARE, OTHER, SELFPAY | PROVIDERS: PCP Registered Nurse; Visit Provider Internal Medicine Rheumatology | DX: M05.79 Rheumatoid arthritis with rheumatoid factor of multiple sites without organ or systems involvement (principal); G60.9 Hereditary and idiopathic neuropathy, unspecified; Z79.899 Other long term (current) drug therapy; M85.80 Other specified disorders of bone density and structure, unspecified site; Z71.89 Other specified counseling | CPT/HCPCS: 99214 ==

== ENCOUNTER 2021-12-17 09:29 | Outpatient (CLI) | payer MEDICARE, OTHER, SELFPAY ==
[2021-12-17 09:58] LABS: Basophils # 0.1 10^3/uL (0.0-0.1); Basophils % 0.7 %; Eosinophils # 0.3 10^3/uL (0.0-0.8); Eosinophils % 3.6 %; Hematocrit 37.9 % (37.0-47.0); Hemoglobin 12.2 g/dL (11.5-15.3); Lymphocytes # 2.1 10^3/uL (0.8-4.8); Lymphocytes % 27.8 %; Mean Corpuscular HGB Conc 32.2 g/dL (30.0-36.0); Mean Corpuscular Hemoglobin 29.1 pg (28.0-34.0); Mean Corpuscular Volume 90.5 fl (81-99); Mean Platelet Volume 11.9 fL (7.4-10.4); Monocytes # 1.1 10^3/uL (0.2-0.9); Monocytes % 14.2 %; Neutrophils % 53.6 %; Nucleated Red Blood Cells % 0 %; Platelet Count 210 10^3/cmm (130-400); Red Blood Count 4.19 10^6/uL (4.1-5.3); Red Cell Distribution Width 15.9 % (12.1-15.1); White Blood Count 7.5 10^3/uL (4.0-10.0)
[2021-12-17 10:24] LABS: Alanine Aminotransferase 16 U/L (0-33); Albumin Level 4.3 g/dL (3.5-5.2); Alkaline Phosphatase 63 IU/L (35-105); Aspartate Amino Transferase 34 U/L (0-32); Blood Urea Nitrogen 12 mg/dL (8-23); Calcium 8.4 mg/dL (8.5-10.5); Carbon Dioxide 31 mmol/L (22-29); Chloride 101 mmol/L (98-107); Globulin 3.5 g/dL (1.3-4.6); Glucose 111 mg/dL (65-115); Osmolality Calculated 296 mOsm/kg (285-295); Sodium 143 mmol/L (136-145); Total Bilirubin 0.5 mg/dL (0.15-1.2); Total Protein 7.8 g/dL (6.6-8.7)
[2021-12-17 12:42] LABS: Potassium 3.2 mmol/L (3.5-5.1)
[2021-12-17 12:43] LABS: Anion Gap 14.2 (5-19)
[2021-12-17 13:47] LABS: LAB Peripheral Smear Sent for Review
[2021-12-19 02:28] LABS: PROTEIN, TOTAL 7.2 g/dL (6.1-8.1)
[2021-12-19 15:36] LABS: KAPPA LIGHT CHAIN, FREE, SERUM 37.3 mg/L (3.3-19.4); LAMBDA LIGHT CHAIN, FREE, SERU 28.7 mg/L (5.7-26.3)
[2021-12-19 16:38] LABS: ALBUMIN 3.8 g/dL (3.8-4.8); ALPHA 1 GLOBULIN 0.3 g/dL (0.2-0.3); ALPHA 2 GLOBULIN 0.9 g/dL (0.5-0.9); BETA 1 GLOBULIN 0.5 g/dL (0.4-0.6); BETA 2 GLOBULIN 0.4 g/dL (0.2-0.5); GAMMA GLOBULIN 1.2 g/dL (0.8-1.7)
--- NOTE | 2021-12-21 17:27 | ONC CON_ITS ---
Dr. Horan New Patient Note Patient: Kaitlynn Osborne Unit #: [id number]: 1945 Dicatated By: Sha Horan M.D.Date of Visit: Dec 17, 2021 Onc MED New Patient/Consult Referring Physician: [facility] HOSPITALIST History of Present Illness: Ms. Kaitlynn Osborne, is a 76-year-old female who presented to [facility] ER on November 13, 2021 with mental status changes, and confusion was diagnosed with urosepsis, A. fib with RVR, dehydrated, hypokalemic, patient treated with broad-spectrum antibiotics, her heart rate was controlled with esmolol drip and electrolytes were supplemented and have lab work-up done on November 13, 2021 showed white blood count was 16,300, with a left shift ANC 13,280, hemoglobin 11.8 hematocrit 25.3 platelets 140,000, peripheral blood smear was performed which showed normal white blood cell with relative bandemia and monocytosis, more than 5-10 plasma cells identified, no blast cells seen subsequently underwent whole blood flow cytometry on November 18, 2021 which showed rare circulating plasma cells. No other overtly aberrant myeloid or lymphoid population seen Her past medical history significant for coronary artery disease, A. fib as mentioned above, on Eliquis, hemorrhoids, gout, osteoarthritis, rheumatoid arthritis with rheumatoid factor, seropositive rheumatoid arthritis with multiple sites, being managed by rheumatology Denies smoking alcohol use. Patient denies any history of night sweats, peripheral lymphadenopathy, abdominal fullness, or recurrent fever or weight loss.. No fever or chills, no nausea or vomiting, no diarrhea or constipation, no dysuria or hematuria Past Medical History: Ms. sOborne's medical history consists of atrial fibrillation, gout, osteoarthritis, peripheral neuropathy, post menopausal osteopenia, and rheumatoid arthritis. Past Surgical History: Ms. Osborne's surgical/procedural history consists of foot surgery, heart bypass surgery, and COVID positive in 2021. Medications: There is no information available for Current Medications - Patient. Allergies: This patient has no documented allergies. Social History: Ms. Osborne is . Family History: There is no documented family history. Review Of Symptoms: Review of Systems is not available for this patient. Vital Signs: Performed on Dec 17, 2021 10:32: 2, 0, 24.30, 1.65 sq.m, 63 in, 98 %, 79 /min, 17 /min, 127/71 mm(hg), 96.4 F (LOW), and 137.2 lbs (HIGH). Performance Status: 0 - Fully active, able to carry on all predisease activities without restrictions. (ECOG) Physical Examination: ENMT - No mouth sores, no thrush, no jaundice, no cervical lymphadenopathy, Respiratory - Lungs are clear to auscultation, Cardiovascular - Regular rate and rhythm of heart, Abdomen - Soft, bowel sounds present, Extremities - No visible edema. Lab/Imaging: Most recent lab results are not available for this patient. Impression: Abnormal peripheral blood smear shows 5-10 plasma cell done on November 13, 2021, whole blood flow cytometry done on November 18, 2021 showed no aberrant myeloid or lymphoid population detected but rare plasma cells seen, which could be reactive or due to plasma cell disorder. Atrial fibrillation, on Eliquis Recent history of urosepsis, admitted to hospital on November 13, 2021 Coronary artery disease Seropositive rheumatoid arthritis involving multiple sites being monitored/managed by rheumatology Plan: Discussed with patient regarding her labs white blood count 7.5 hemoglobin 12.2 g hematocrit 37.9 platelets 210,000 with normal differential CMP within normal limits Clinically, patient is doing well with no signs symptoms suggestive of lymphoproliferative or plasma cell disorder, on exam there is no peripheral lymphadenopathy, no organomegaly, lab work-up showed normal renal function test, calcium level and total protein level and albumin level, normal CBC, resolution of leukocytosis/bandemia seen on November 13, 2021. As far as, presence of plasma cell in peripheral blood smear reviewed on November 13, 2021, and rare plasma cell seen in whole blood flow cytometry, could be due to urosepsis induced bone marrow response, other possibility could be plasma cell disorder but less likely, As her follow-up CBC shows resolution of leukocytosis, will repeat peripheral blood smear and also consider serum protein electrophoresis and immunofixation and serum light chain assay as a screening test for plasma cell disorder. Patient return to clinic in 2 weeks with CBC CMP. ,Addendum; Peripheral blood smear reviewed with pathologist today , occasionally plasma cell seen, probably reactive, no rouleaux formation, no blast cells seen Signed By: Sha Horan M.D. <<Signature on File>>
== END 2021-12-17 09:30 | disposition home or self-care (01) ==
PROVIDERS: PCP Registered Nurse; Visit Provider Internal Medicine Hematology & Oncology
DX: R79.9 Abnormal finding of blood chemistry, unspecified (principal); I48.91 Unspecified atrial fibrillation; Z79.01 Long term (current) use of anticoagulants; I25.10 Atherosclerotic heart disease of native coronary artery without angina pectoris; M05.79 Rheumatoid arthritis with rheumatoid factor of multiple sites without organ or systems involvement
CPT/HCPCS: 36415; 80053; 80503; 83883; 84155; 84165; 85025; 99204

== ENCOUNTER 2021-12-23 10:24 | Outpatient (CLI) | payer MEDICARE, OTHER, SELFPAY ==
[2021-12-23 11:10] VITALS: BP 140/79; PULSE 85; RESP 18; TEMP 36.9; O2SAT 97
[2021-12-23 11:29] LABS: Basophils # 0.1 10^3/uL (0.0-0.1); Basophils % 0.7 %; Eosinophils # 0.3 10^3/uL (0.0-0.8); Eosinophils % 3.6 %; Hematocrit 33.6 % (37.0-47.0); Hemoglobin 11.3 g/dL (11.5-15.3); Lymphocytes # 1.8 10^3/uL (0.8-4.8); Lymphocytes % 26.3 %; Mean Corpuscular HGB Conc 33.6 g/dL (30.0-36.0); Mean Corpuscular Hemoglobin 29.9 pg (28.0-34.0); Mean Corpuscular Volume 88.9 fl (81-99); Mean Platelet Volume 11.9 fL (7.4-10.4); Monocytes # 0.9 10^3/uL (0.2-0.9); Monocytes % 13.6 %; Neutrophils % 55.5 %; Nucleated Red Blood Cells % 0 %; Platelet Count 191 10^3/cmm (130-400); Red Blood Count 3.78 10^6/uL (4.1-5.3); Red Cell Distribution Width 15.7 % (12.1-15.1); White Blood Count 6.9 10^3/uL (4.0-10.0)
[2021-12-23 11:37] LABS: Erythrocyte Sedimentation Rate 20 mm/hr (0-15)
[2021-12-23] MEDS: sodium chloride 0.9% 250 ML 50 ML IV (11:42)
[2021-12-23 11:46] LABS: Alanine Aminotransferase 15 U/L (0-33); Albumin Level 3.9 g/dL (3.5-5.2); Alkaline Phosphatase 59 IU/L (35-105); Aspartate Amino Transferase 22 U/L (0-32); Globulin 3.7 g/dL (1.3-4.6); Total Bilirubin 0.4 mg/dL (0.15-1.2); Total Protein 7.6 g/dL (6.6-8.7)
[2021-12-23 12:33] VITALS: BP 151/83; PULSE 82; RESP 18; TEMP 36.3; O2SAT 97
== END 2021-12-23 10:25 | disposition home or self-care (01) ==
PROVIDERS: PCP Registered Nurse; Referring Provider Internal Medicine Rheumatology; Visit Provider Internal Medicine Rheumatology
DX: M05.79 Rheumatoid arthritis with rheumatoid factor of multiple sites without organ or systems involvement (principal); Z79.899 Other long term (current) drug therapy
CPT/HCPCS: 80076; 82565; 85025; 85651; 96365; J1602; J7050

== ENCOUNTER → 2021-12-29 13:46 | Outpatient (BNVA) | payer MEDICARE, OTHER, SELFPAY | PROVIDERS: PCP Registered Nurse; Visit Provider Internal Medicine Cardiovascular Disease | DX: I48.11 Longstanding persistent atrial fibrillation (principal); I10 Essential (primary) hypertension; I25.10 Atherosclerotic heart disease of native coronary artery without angina pectoris; Z95.1 Presence of aortocoronary bypass graft | CPT/HCPCS: 99214 ==

== ENCOUNTER 2021-12-31 12:47 | Oncology outpatient (recurring) (ONCR) | payer MEDICARE, OTHER, SELFPAY ==
[2021-12-31 13:18] LABS: Basophils # 0.1 10^3/uL (0.0-0.1); Basophils % 0.9 %; Eosinophils # 0.3 10^3/uL (0.0-0.8); Eosinophils % 4.6 %; Hematocrit 36.2 % (37.0-47.0); Hemoglobin 11.3 g/dL (11.5-15.3); Lymphocytes # 2.2 10^3/uL (0.8-4.8); Lymphocytes % 34.2 %; Mean Corpuscular HGB Conc 31.2 g/dL (30.0-36.0); Mean Corpuscular Volume 92.8 fl (81-99); Mean Platelet Volume 12.2 fL (7.4-10.4); Monocytes % 15.7 %; Neutrophils # 2.82 10^3/uL (1.8-7.7); Neutrophils % 44.6 %; Nucleated Red Blood Cells % 0 %; Platelet Count 193 10^3/cmm (130-400); Red Cell Distribution Width 16.2 % (12.1-15.1); White Blood Count 6.3 10^3/uL (4.0-10.0)
[2021-12-31 13:35] LABS: Alanine Aminotransferase 19 U/L (0-33); Albumin Level 3.9 g/dL (3.5-5.2); Alkaline Phosphatase 54 IU/L (35-105); Anion Gap 12.5 (5-19); Aspartate Amino Transferase 27 U/L (0-32); Blood Urea Nitrogen 15 mg/dL (8-23); Calcium 8.7 mg/dL (8.5-10.5); Carbon Dioxide 28 mmol/L (22-29); Chloride 105 mmol/L (98-107); Globulin 3.5 g/dL (1.3-4.6); Glucose 111 mg/dL (65-115); Osmolality Calculated 296 mOsm/kg (285-295); Potassium 3.5 mmol/L (3.5-5.1); Sodium 142 mmol/L (136-145); Total Bilirubin 0.4 mg/dL (0.15-1.2); Total Protein 7.4 g/dL (6.6-8.7)
== END 2022-01-20 23:59 | disposition home or self-care (01) ==
PROVIDERS: PCP Registered Nurse; Visit Provider Internal Medicine Hematology & Oncology
DX: D64.9 Anemia, unspecified (principal); I48.91 Unspecified atrial fibrillation; R79.89 Other specified abnormal findings of blood chemistry; Z79.01 Long term (current) use of anticoagulants; Z79.899 Other long term (current) drug therapy
CPT/HCPCS: 80053; 85025; 99214; 99999

== ENCOUNTER 2022-02-26 09:48 | Outpatient (CLI) | payer MEDICARE, OTHER, SELFPAY ==
[2022-02-26 10:25] LABS: Erythrocyte Sedimentation Rate 13 mm/hr (0-15)
[2022-02-26 10:27] LABS: Basophils # 0.1 10^3/uL (0.0-0.1); Basophils % 0.6 %; Eosinophils # 0.3 10^3/uL (0.0-0.8); Eosinophils % 3.6 %; Hematocrit 35.9 % (37.0-47.0); Hemoglobin 11.6 g/dL (11.5-15.3); Lymphocytes # 1.4 10^3/uL (0.8-4.8); Lymphocytes % 17.4 %; Mean Corpuscular HGB Conc 32.3 g/dL (30.0-36.0); Mean Corpuscular Hemoglobin 28.8 pg (28.0-34.0); Mean Corpuscular Volume 89.1 fl (81-99); Mean Platelet Volume 12.1 fL (7.4-10.4); Monocytes # 0.9 10^3/uL (0.2-0.9); Monocytes % 11.4 %; Neutrophils # 5.34 10^3/uL (1.8-7.7); Neutrophils % 66.5 %; Nucleated Red Blood Cells % 0 %; Platelet Count 170 10^3/cmm (130-400); Red Blood Count 4.03 10^6/uL (4.1-5.3); Red Cell Distribution Width 15.4 % (12.1-15.1)
[2022-02-26] MEDS: sodium chloride 0.9% 250 ML 50 ML IV (10:35)
[2022-02-26 10:47] LABS: Alanine Aminotransferase 10 U/L (0-33); Albumin Level 4.1 g/dL (3.5-5.2); Alkaline Phosphatase 64 IU/L (35-105); Globulin 3.2 g/dL (1.3-4.6); Total Bilirubin 0.5 mg/dL (0.15-1.2); Total Protein 7.3 g/dL (6.6-8.7)
[2022-02-26 10:49] LABS: Aspartate Amino Transferase 34 U/L (0-32)
[2022-02-26 10:51] VITALS: BP 124/69; PULSE 74; RESP 18; TEMP 36.4; O2SAT 94
[2022-02-26 11:39] VITALS: BP 150/83; PULSE 79; RESP 18; TEMP 36.5; O2SAT 95
== END 2022-02-26 09:49 | disposition home or self-care (01) ==
LOC: ONCMED 09:48
PROVIDERS: PCP Registered Nurse; Referring Provider Internal Medicine Rheumatology; Visit Provider Internal Medicine Rheumatology
DX: M05.79 Rheumatoid arthritis with rheumatoid factor of multiple sites without organ or systems involvement (principal); Z79.899 Other long term (current) drug therapy
CPT/HCPCS: 80076; 82565; 85025; 85651; 96365; J1602; J7050

== ENCOUNTER → 2022-04-13 09:35 | Outpatient (BNVA) | payer MEDICARE, OTHER, SELFPAY | PROVIDERS: PCP Registered Nurse; Visit Provider Internal Medicine Rheumatology | DX: M05.79 Rheumatoid arthritis with rheumatoid factor of multiple sites without organ or systems involvement (principal); Z71.89 Other specified counseling; Z79.899 Other long term (current) drug therapy; G62.9 Polyneuropathy, unspecified; M85.80 Other specified disorders of bone density and structure, unspecified site | CPT/HCPCS: 99214 ==

== ENCOUNTER 2022-05-14 10:35 | Outpatient (CLI) | payer MEDICARE, OTHER, SELFPAY ==
[2022-05-14 11:15] VITALS: BP 122/79; PULSE 72; RESP 18; TEMP 36.1; O2SAT 97
[2022-05-14 11:29] LABS: Basophils # 0.1 10^3/uL (0.0-0.1); Basophils % 0.9 %; Eosinophils # 0.3 10^3/uL (0.0-0.8); Eosinophils % 4.7 %; Hematocrit 37.4 % (37.0-47.0); Lymphocytes # 1.1 10^3/uL (0.8-4.8); Lymphocytes % 17.1 %; Mean Corpuscular HGB Conc 32.1 g/dL (30.0-36.0); Mean Corpuscular Hemoglobin 28.6 pg (28.0-34.0); Mean Platelet Volume 11.5 fL (7.4-10.4); Monocytes # 0.9 10^3/uL (0.2-0.9); Monocytes % 14.2 %; Neutrophils # 4.12 10^3/uL (1.8-7.7); Neutrophils % 62.8 %; Nucleated Red Blood Cells % 0 %; Platelet Count 185 10^3/cmm (130-400); Red Cell Distribution Width 17.4 % (12.1-15.1); White Blood Count 6.6 10^3/uL (4.0-10.0)
[2022-05-14 11:30] LABS: Erythrocyte Sedimentation Rate 25 mm/hr (0-15)
[2022-05-14] MEDS: sodium chloride 0.9% 250 ML 50 ML IV (11:43)
[2022-05-14 11:51] LABS: Alanine Aminotransferase 14 U/L (0-33); Albumin Level 4.1 g/dL (3.5-5.2); Alkaline Phosphatase 69 U/L (35-105); Aspartate Amino Transferase 30 U/L (0-32); Globulin 3.4 g/dL (1.3-4.6); Total Bilirubin 0.5 mg/dL (0.15-1.2); Total Protein 7.5 g/dL (6.6-8.7)
[2022-05-14 12:41] VITALS: BP 137/76; PULSE 62; RESP 18; TEMP 36.3; O2SAT 96
== END 2022-05-14 10:36 | disposition home or self-care (01) ==
PROVIDERS: PCP Registered Nurse; Visit Provider Internal Medicine Rheumatology
DX: M05.9 Rheumatoid arthritis with rheumatoid factor, unspecified (principal)
CPT/HCPCS: 80076; 82565; 85025; 85651; 96365; J1602; J7050

== ENCOUNTER 2022-07-09 09:57 | Outpatient (CLI) | payer MEDICARE, OTHER, SELFPAY ==
[2022-07-09 11:02] VITALS: BP 133/69; PULSE 73; RESP 18; TEMP 36.4; O2SAT 99
[2022-07-09 11:24] LABS: Basophils # 0.1 10^3/uL (0.0-0.1); Eosinophils # 0.3 10^3/uL (0.0-0.8); Eosinophils % 4.6 %; Hematocrit 38.5 % (37.0-47.0); Hemoglobin 12.6 g/dL (11.5-15.3); Lymphocytes % 33.4 %; Mean Corpuscular HGB Conc 32.7 g/dL (30.0-36.0); Mean Corpuscular Hemoglobin 28.7 pg (28.0-34.0); Mean Corpuscular Volume 87.7 fl (81-99); Mean Platelet Volume 11.5 fL (7.4-10.4); Monocytes # 0.9 10^3/uL (0.2-0.9); Monocytes % 15.2 %; Neutrophils # 2.69 10^3/uL (1.8-7.7); Neutrophils % 45.5 %; Nucleated Red Blood Cells % 0 %; Platelet Count 195 10^3/cmm (130-400); Red Blood Count 4.39 10^6/uL (4.1-5.3); Red Cell Distribution Width 15.6 % (12.1-15.1); White Blood Count 5.9 10^3/uL (4.0-10.0)
[2022-07-09 11:25] LABS: Erythrocyte Sedimentation Rate 10 mm/hr (0-15)
[2022-07-09 11:42] LABS: Alanine Aminotransferase 17 U/L (0-33); Albumin Level 3.9 g/dL (3.5-5.2); Alkaline Phosphatase 65 U/L (35-105); Aspartate Amino Transferase 25 U/L (0-32); Creatinine Clr Calc Pharmacy 45.5327; Globulin 3.8 g/dL (1.3-4.6); Total Bilirubin 0.4 mg/dL (0.15-1.2); Total Protein 7.7 g/dL (6.6-8.7)
[2022-07-09] MEDS: sodium chloride 0.9% 250 ML 50 ML IV (11:52)
[2022-07-09 12:36] VITALS: BP 139/66; PULSE 72; RESP 18; TEMP 36.5; O2SAT 97
== END 2022-07-09 09:58 | disposition home or self-care (01) ==
PROVIDERS: PCP Registered Nurse; Visit Provider Internal Medicine Rheumatology
DX: M05.79 Rheumatoid arthritis with rheumatoid factor of multiple sites without organ or systems involvement (principal)
CPT/HCPCS: 80076; 82565; 85025; 85651; 96365; A4222; J1602; J7050

== ENCOUNTER 2022-09-03 10:46 | Outpatient (CLI) | payer MEDICARE, OTHER, SELFPAY ==
[2022-09-03 11:22] VITALS: BP 97/60; PULSE 50; RESP 16; TEMP 36.3; O2SAT 96
[2022-09-03 11:22] LABS: Basophils # 0.1 10^3/uL (0.0-0.1); Basophils % 1.2 %; Eosinophils # 0.3 10^3/uL (0.0-0.8); Eosinophils % 5.4 %; Hematocrit 38.3 % (37.0-47.0); Hemoglobin 12.2 g/dL (11.5-15.3); Lymphocytes # 1.7 10^3/uL (0.8-4.8); Lymphocytes % 27.9 %; Mean Corpuscular HGB Conc 31.9 g/dL (30.0-36.0); Mean Corpuscular Hemoglobin 28.2 pg (28.0-34.0); Mean Corpuscular Volume 88.7 fl (81-99); Mean Platelet Volume 11.2 fL (7.4-10.4); Monocytes # 0.7 10^3/uL (0.2-0.9); Monocytes % 12.5 %; Neutrophils # 3.13 10^3/uL (1.8-7.7); Neutrophils % 52.8 %; Nucleated Red Blood Cells % 0 %; Platelet Count 220 10^3/cmm (130-400); Red Blood Count 4.32 10^6/uL (4.1-5.3); Red Cell Distribution Width 16.2 % (12.1-15.1); White Blood Count 5.9 10^3/uL (4.0-10.0)
[2022-09-03] MEDS: sodium chloride 0.9% 250 ML 50 ML IV (11:34)
[2022-09-03 11:37] LABS: Alanine Aminotransferase 16 U/L (0-33); Alkaline Phosphatase 59 U/L (35-105); Aspartate Amino Transferase 23 U/L (0-32); Globulin 3.6 g/dL (1.3-4.6); Total Bilirubin 0.8 mg/dL (0.15-1.2); Total Protein 7.6 g/dL (6.6-8.7)
[2022-09-03 12:26] VITALS: BP 115/58; PULSE 62; RESP 18; TEMP 36.6; O2SAT 97
== END 2022-09-03 10:47 | disposition home or self-care (01) ==
PROVIDERS: PCP Registered Nurse; Visit Provider Internal Medicine
DX: M05.79 Rheumatoid arthritis with rheumatoid factor of multiple sites without organ or systems involvement (principal); Z79.899 Other long term (current) drug therapy
CPT/HCPCS: 80076; 82565; 85025; 85651; 96365; A4222; J1602; J7050

== ENCOUNTER → 2022-09-18 12:12 | Outpatient (BNVA) | payer MEDICARE, OTHER, SELFPAY | PROVIDERS: PCP Registered Nurse; Visit Provider Internal Medicine Cardiovascular Disease | DX: I25.10 Atherosclerotic heart disease of native coronary artery without angina pectoris (principal); I48.11 Longstanding persistent atrial fibrillation; I10 Essential (primary) hypertension; E78.5 Hyperlipidemia, unspecified; M05.79 Rheumatoid arthritis with rheumatoid factor of multiple sites without organ or systems involvement | CPT/HCPCS: 36415; 80053; 80162; 83735; 83880; 99214 ==

== ENCOUNTER → 2022-09-29 10:34 | Outpatient (BNVA) | payer MEDICARE, OTHER, SELFPAY | PROVIDERS: PCP Registered Nurse; Referring Provider Registered Nurse; Visit Provider Orthopaedic Surgery | DX: M05.79 Rheumatoid arthritis with rheumatoid factor of multiple sites without organ or systems involvement (principal); M25.561 Pain in right knee; M25.562 Pain in left knee | CPT/HCPCS: 20610; 99203; J0702; J3490 ==

== ENCOUNTER 2022-10-27 09:42 | Oncology outpatient (recurring) (ONCR) | payer MEDICARE, OTHER, SELFPAY ==
[2022-10-27 09:56] VITALS: BMI 25.1
[2022-10-27 10:24] VITALS: BP 120/70; PULSE 71; RESP 16; TEMP 36.6; O2SAT 97
[2022-10-27] MEDS: GOLIMUMAB IV (11:02)
[2022-10-27] MEDS: SODIUM CHLORIDE 0.9% IV (11:02)
[2022-10-27 11:22] LABS: Basophils # 0.1 10^3/uL (0.0-0.1); Eosinophils # 0.3 10^3/uL (0.0-0.8); Eosinophils % 3.4 %; Hematocrit 36.9 % (37.0-47.0); Hemoglobin 11.9 g/dL (11.5-15.3); Lymphocytes # 1.6 10^3/uL (0.8-4.8); Lymphocytes % 22.1 %; Mean Corpuscular HGB Conc 32.2 g/dL (30.0-36.0); Mean Corpuscular Hemoglobin 28.5 pg (28.0-34.0); Mean Corpuscular Volume 88.5 fl (81-99); Mean Platelet Volume 11.8 fL (7.4-10.4); Monocytes # 1.2 10^3/uL (0.2-0.9); Monocytes % 15.7 %; Neutrophils # 4.23 10^3/uL (1.8-7.7); Neutrophils % 57.5 %; Nucleated Red Blood Cells % 0 %; Platelet Count 190 10^3/cmm (130-400); Red Blood Count 4.17 10^6/uL (4.1-5.3); Red Cell Distribution Width 14.8 % (12.1-15.1); White Blood Count 7.3 10^3/uL (4.0-10.0)
[2022-10-27 11:23] LABS: Erythrocyte Sedimentation Rate 18 mm/hr (0-15)
[2022-10-27 11:45] VITALS: BP 111/63; PULSE 63; RESP 16; TEMP 36.1; O2SAT 96
== END 2022-11-20 23:59 | disposition home or self-care (01) ==
PROVIDERS: PCP Registered Nurse; Visit Provider Internal Medicine Rheumatology
DX: M05.79 Rheumatoid arthritis with rheumatoid factor of multiple sites without organ or systems involvement (principal)
CPT/HCPCS: 85025; 85651; 96365; J1602

== ENCOUNTER → 2022-11-10 14:40 | Outpatient (BNVA) | payer MEDICARE, OTHER, SELFPAY | PROVIDERS: PCP Registered Nurse; Visit Provider Internal Medicine Rheumatology | DX: M05.79 Rheumatoid arthritis with rheumatoid factor of multiple sites without organ or systems involvement (principal); Z79.899 Other long term (current) drug therapy; Z71.89 Other specified counseling; G60.9 Hereditary and idiopathic neuropathy, unspecified | CPT/HCPCS: 99214 ==

== ENCOUNTER 2022-12-24 09:31 | Oncology outpatient (recurring) (ONCR) | payer MEDICARE, OTHER, SELFPAY ==
[2022-12-24 09:39] VITALS: BMI 25.7
[2022-12-24] MEDS: sodium chloride 0.9% 250 ML 75 ML IV (10:08)
[2022-12-24 10:10] VITALS: BP 161/83; PULSE 80; RESP 16; TEMP 37; O2SAT 97
[2022-12-24 10:32] LABS: Basophils # 0.1 10^3/uL (0.0-0.1); Basophils % 0.5 %; Eosinophils # 0.3 10^3/uL (0.0-0.8); Eosinophils % 2.6 %; Hematocrit 32.9 % (37.0-47.0); Hemoglobin 10.2 g/dL (11.5-15.3); Lymphocytes # 1.3 10^3/uL (0.8-4.8); Lymphocytes % 9.7 %; Mean Corpuscular Hemoglobin 27.6 pg (28.0-34.0); Mean Corpuscular Volume 88.9 fl (81-99); Monocytes # 1.6 10^3/uL (0.2-0.9); Monocytes % 11.9 %; Neutrophils # 9.72 10^3/uL (1.8-7.7); Neutrophils % 74.7 %; Nucleated Red Blood Cells % 0 %; Platelet Count 230 10^3/cmm (130-400); Red Cell Distribution Width 14.6 % (12.1-15.1)
[2022-12-24] MEDS: golimumab 130 MG in sodium chloride 0.9% (100 ml) 100 ML 220.8 MG IV (10:46)
[2022-12-24 10:48] LABS: Erythrocyte Sedimentation Rate 42 mm/hr (0-15)
[2022-12-24 10:59] LABS: Alanine Aminotransferase 12 U/L (0-33); Albumin Level 3.7 g/dL (3.5-5.2); Alkaline Phosphatase 68 U/L (35-105); Aspartate Amino Transferase 23 U/L (0-32); Globulin 3.4 g/dL (1.3-4.6); Total Bilirubin 0.5 mg/dL (0.15-1.2); Total Protein 7.1 g/dL (6.6-8.7)
[2022-12-24 11:30] VITALS: BP 151/75; PULSE 73; RESP 16; TEMP 37.4; O2SAT 96
== END 2023-01-20 23:59 | disposition home or self-care (01) ==
PROVIDERS: PCP Registered Nurse; Visit Provider Internal Medicine Rheumatology
DX: M05.9 Rheumatoid arthritis with rheumatoid factor, unspecified (principal)
CPT/HCPCS: 80076; 82565; 85025; 85651; 96413; J1200; J1602; J7050

== ENCOUNTER 2023-02-18 09:54 | Oncology outpatient (recurring) (ONCR) | payer MEDICARE, OTHER, SELFPAY ==
[2023-02-18 10:30] VITALS: BP 180/79; PULSE 77; RESP 16; TEMP 36.5; O2SAT 96
[2023-02-18 11:10] LABS: Basophils # 0.1 10^3/uL (0.0-0.1); Eosinophils # 0.3 10^3/uL (0.0-0.8); Eosinophils % 3.7 %; Hematocrit 34.4 % (37.0-47.0); Hemoglobin 10.9 g/dL (11.5-15.3); Lymphocytes # 1.9 10^3/uL (0.8-4.8); Lymphocytes % 23.6 %; Mean Corpuscular HGB Conc 31.7 g/dL (30.0-36.0); Mean Corpuscular Hemoglobin 27.3 pg (28.0-34.0); Mean Platelet Volume 12.4 fL (7.4-10.4); Monocytes % 12.5 %; Neutrophils # 4.82 10^3/uL (1.8-7.7); Neutrophils % 58.8 %; Nucleated Red Blood Cells % 0 %; Platelet Count 192 10^3/cmm (130-400); Red Cell Distribution Width 16.5 % (12.1-15.1); White Blood Count 8.2 10^3/uL (4.0-10.0)
[2023-02-18] MEDS: sodium chloride 0.9% 250 ML 75 ML IV (11:13)
[2023-02-18] MEDS: golimumab 130 MG in sodium chloride 0.9% (100 ml) 100 ML 220.8 MG IV (11:30)
[2023-02-18 11:36] LABS: Alanine Aminotransferase 14 U/L (0-33); Alkaline Phosphatase 56 U/L (35-105); Aspartate Amino Transferase 23 U/L (0-32); C Reactive Protein 17.2 mg/L (0.0-4.9); Total Bilirubin 0.6 mg/dL (0.15-1.2); Uric Acid 5.3 mg/dL (2.4-5.7)
[2023-02-18 12:20] VITALS: BP 169/100; PULSE 64; RESP 16; TEMP 36.8; O2SAT 97
== END 2023-02-19 23:59 | disposition home or self-care (01) ==
PROVIDERS: PCP Registered Nurse; Visit Provider Internal Medicine Rheumatology
DX: Z79.899 Other long term (current) drug therapy; M05.79 Rheumatoid arthritis with rheumatoid factor of multiple sites without organ or systems involvement
CPT/HCPCS: 80076; 82565; 84550; 85025; 86140; 96365; J1602; J7050

== ENCOUNTER → 2023-03-03 10:33 | Outpatient (BNVA) | payer MEDICARE, OTHER, SELFPAY | PROVIDERS: PCP Registered Nurse; Visit Provider Internal Medicine Cardiovascular Disease | DX: I25.10 Atherosclerotic heart disease of native coronary artery without angina pectoris (principal); E78.5 Hyperlipidemia, unspecified; I48.11 Longstanding persistent atrial fibrillation; Z79.01 Long term (current) use of anticoagulants; Z95.1 Presence of aortocoronary bypass graft | CPT/HCPCS: 99214 ==

== ENCOUNTER 2023-03-18 08:56 | Outpatient (CLI) | payer MEDICARE, OTHER, SELFPAY ==
[2023-03-18 09:14] VITALS: BMI 24.8
--- NOTE | 2023-03-18 09:39 | NMCV_ITS ---
NM margareth perf SPECT r/s* [id number] Kaitlynn Osborne Age: 77 Gender: F : 1945 Exam Date: 03/18/2023 09:39 Ordering Phys: Azeem Solomon MD ([email or web address]) Technologist: NIMCO Thompson Exam Location: [facility] Indications: ATHEROSCLEROTIC HEART DISEASE STRESS TEST Please see separate stress test report in [facility] for full findings IMAGE PROTOCOL Rest/Stress 1 Lexiscan Day Radiopharmaceutical Dose (mCi) Administration Site Administered by Rest: Tc-99m 10.5 IV NIMCO Hernandez Sestamibi Stress:Tc-99m 32.3 IV NIMCO Hernandez Sestamibi Rest: 18-Mar-2023 60 Discovery 630 Stress: 18-Mar-2023 30 Discovery 630 0.4mg Lexiscan. Images obtained in supine and prone position. SPECT RESULTS Technical Quality: Excellent Raw Data Analysis: Normal Image Corrections: No attenuation or motion correction applied Summed Stress Score: 0 Summed Rest Score: 0 Summed Difference Score: 0 PERFUSION FINDINGS SPECT images demonstrate homogeneous tracer distribution throughout the myocardium. FUNCTIONAL RESULTS (calculated via Gated SPECT) Stress Image LV EF (%): 65 Stress EDV (mL):60 TID: 1.08 Stress ESV (mL):21 FUNCTIONAL FINDINGS: The left ventricle is normal in size. Transient Ischemia Dilatation of 1.1. The left ventricular ejection fraction is normal with a value of 65%. There is normal left ventricular wall thickening. IMPRESSIONS 1. Myocardial perfusion imaging is normal. 2. Overall left ventricular systolic function is normal without regional wall motion abnormalities, LVEF=65%. 3. EKG portion of the study will be reported separately. 4. Scan indicates low risk for cardiac events. Erin Daniels MD (Electronically Signed) Final Date: 22 March 2023 14:46 S
--- NOTE | 2023-03-18 09:39 | ECG_ITS ---
[facility] Test Date: 2023-03-18 Pat Name: Kaitlynn Osborne Department: Room: Gender: Female Transport Assistant: : 1945 Requested By: Azeem Solomon Order Number: [id number] Cerrato MD: Erin Daniels M.D. Interpretive Statements NAME OF STUDY: LEXISCAN SESTAMIBI STRESS TEST INDICATION: Chest Pain PROCEDURE: At the baseline, the blood pressure was 210/ 112 mmHg with a heart rate of 103 bpm and oxygen saturation 96%. The electrocardiogram showed atrial fibrillation with rapid ventricular response, possible old septal infarct. Nonspecific diffuse ST depression. The Lexiscan was infused over a period of 20 seconds. A total of 0.4 milligrams of Lexiscan was infused. The stress phase was continued for a total of 5 minutes. Heart rate at the end of the stress phase was 106 bpm, oxygen saturation 96% with a blood pressure 188/100 mmHg. The EKG at the peak infusion revealed worsening of baseline ST depression in lead II, 3, aVF V3 to V6. Biphasic T waves noted. Worsening of baseline ST elevation noted in lead aVR. Sestamibi was injected 20 seconds after the Lexiscan infusion. Blood pressure at the end of the recovery phase was 110/109 mmHg, oxygen saturation 95% with a heart rate of 97 beats per minute. CONCLUSION: 1. Equivocal EKG changes with the LexiScan infusion baseline ST-T wave changes. 2. No LexiScan induced chest pain or cardiac arrhythmia. 3. Baseline hypertension with normal blood pressure and heart rate response. 4. Sestamibi/sestamibi perfusion scan pending; see separate report. Electronically Signed On 03-24-2023 16:42:20 CDT by Erin Daniels M.D. [id number]
[2023-03-18] MEDS: regadenoson 0.4 Mg/5 ml Syringe IVP (11:07)
[2023-03-18 11:26] VITALS: BP 210/109; PULSE 97
== END 2023-03-18 08:57 | disposition home or self-care (01) ==
LOC: CDL 08:57
PROVIDERS: PCP Registered Nurse; Visit Provider Internal Medicine Cardiovascular Disease
DX: R07.9 Chest pain, unspecified (principal); I25.10 Atherosclerotic heart disease of native coronary artery without angina pectoris
CPT/HCPCS: 36415; 78452; 93017; 96374; 99214; A9500; J2785

== ENCOUNTER 2023-04-22 10:00 | Oncology outpatient (recurring) (ONCR) | payer MEDICARE, OTHER, SELFPAY ==
[2023-04-14 10:58] VITALS: BP 208/91
[2023-04-14] MEDS: cloNIDine 0.1 mg Tablet PO ×2 (10:58→12:15)
[2023-04-14 11:00] VITALS: BP 222/95; PULSE 63; RESP 18; TEMP 36.7; O2SAT 97
[2023-04-14 12:15] VITALS: BP 196/87
--- NOTE | 2023-04-14 15:20 | PC.NURSE ---
Patient states she did take a antihistimine before she came in today. B/P elevated with the Dr notified with the new order for clonidine 0.1mg and recheck,
[2023-04-22 10:30] VITALS: BP 183/67; PULSE 57; RESP 17; TEMP 36.6; O2SAT 96
[2023-04-22 11:00] VITALS: BP 194/90; PULSE 57; RESP 18; TEMP 36.6; O2SAT 96
--- NOTE | 2023-04-22 12:17 | PC.NURSE ---
Upon arrival, pt blood pressure measured 183/67. I consulted with Cathy Pastor, charge nurse, and retook her bp @ 1045 and it measured 194/90. Attempted to contact Dr. Bonilla's office but was unsuccessful. Contacted Phoebe Fox ([facility] Principal Database Developer) and made the decision to hold the treatment. Educated the patient on how the treatment had a risk of increasing her blood pressure even more and then the risks of high blood pressure. Suggested that the patient contact her primary care physician and then reschedule her treatment appointment.
== END 2023-04-22 23:59 | disposition home or self-care (01) ==
PROVIDERS: PCP Registered Nurse; Visit Provider Internal Medicine Rheumatology
DX: Z53.9 Procedure and treatment not carried out, unspecified reason (principal)
CPT/HCPCS: 99211

== ENCOUNTER 2023-04-30 09:23 | Oncology outpatient (recurring) (ONCR) | payer MEDICARE, OTHER, SELFPAY ==
[2023-04-30 10:12] VITALS: BP 122/72; PULSE 54; RESP 17; TEMP 36.4; O2SAT 95; BMI 25.4
[2023-04-30] MEDS: golimumab 130 MG in sodium chloride 0.9% (100 ml) 100 ML 220.8 MG IV (10:53)
[2023-04-30 11:30] VITALS: BP 136/71; PULSE 59; RESP 17; TEMP 36.3; O2SAT 96
== END 2023-05-22 23:59 | disposition home or self-care (01) ==
LOC: ONCMED 09:23
PROVIDERS: PCP Registered Nurse; Visit Provider Internal Medicine Rheumatology
DX: M05.9 Rheumatoid arthritis with rheumatoid factor, unspecified (principal)
CPT/HCPCS: 96413; J1602

== ENCOUNTER → 2023-06-02 11:13 | Outpatient (BNVA) | payer MEDICARE, OTHER, SELFPAY | PROVIDERS: PCP Registered Nurse; Visit Provider Internal Medicine Cardiovascular Disease | DX: Z95.0 Presence of cardiac pacemaker (principal); Z79.01 Long term (current) use of anticoagulants; I48.11 Longstanding persistent atrial fibrillation; I10 Essential (primary) hypertension; I25.10 Atherosclerotic heart disease of native coronary artery without angina pectoris; E78.5 Hyperlipidemia, unspecified | CPT/HCPCS: 99214 ==

== ENCOUNTER 2023-07-01 09:24 | Oncology outpatient (recurring) (ONCR) | payer MEDICARE, OTHER, SELFPAY ==
[2023-07-01 11:03] LABS: Basophils # 0.1 10^3/uL (0.0-0.1); Basophils % 0.6 %; Eosinophils # 0.5 10^3/uL (0.0-0.8); Eosinophils % 6.1 %; Hematocrit 35.9 % (36-47); Lymphocytes # 2.1 10^3/uL (0.8-4.8); Lymphocytes % 27.2 %; Mean Corpuscular Hemoglobin 28.1 pg (27-33); Mean Corpuscular Volume 87.8 fl (85-98); Mean Platelet Volume 11.6 fL (7.4-10.4); Monocytes # 1.1 10^3/uL (0.2-0.9); Monocytes % 14.6 %; Neutrophils % 51.2 %; Nucleated Red Blood Cells % 0 %; Platelet Count 178 10^3/cmm (157-399); Red Blood Count 4.09 10^6/uL (3.85-5.65); Red Cell Distribution Width 15.7 % (12.1-15.1); White Blood Count 7.82 10^3/uL (3.29-11.43)
[2023-07-01 11:04] VITALS: BP 111/72; PULSE 74; TEMP 36.2; O2SAT 96
[2023-07-01 11:21] LABS: Alanine Aminotransferase 16 U/L (0-33); Albumin Level 3.9 g/dL (3.5-5.2); Alkaline Phosphatase 66 U/L (35-105); Aspartate Amino Transferase 30 U/L (0-32); C Reactive Protein 4.9 mg/L (0.0-4.9); Globulin 3.4 g/dL (1.3-4.6); Total Bilirubin 0.6 mg/dL (0.15-1.2); Total Protein 7.3 g/dL (6.6-8.7)
[2023-07-01] MEDS: SODIUM CHLORIDE 0.9% IV (11:28)
[2023-07-01] MEDS: GOLIMUMAB IV (11:28)
[2023-07-01 12:10] VITALS: BP 119/73; PULSE 88; RESP 16; TEMP 36.3; O2SAT 98
== END 2023-07-22 23:59 | disposition home or self-care (01) ==
PROVIDERS: PCP Registered Nurse; Visit Provider Internal Medicine Rheumatology
DX: M05.9 Rheumatoid arthritis with rheumatoid factor, unspecified (principal)
CPT/HCPCS: 80076; 82565; 85025; 86140; 96365; J1602